=== PATIENT | male | born 1955 | race Caucasian/White ===

== ENCOUNTER 2024-04-13 10:55 | Outpatient (CLI) | payer MEDICARE, BC, SELFPAY | END 2024-04-13 10:56 | disposition home or self-care (01) | PROVIDERS: PCP Nurse Practitioner Family; Visit Provider Nurse Practitioner Family | DX: Z00.00 Encounter for general adult medical examination without abnormal findings (principal); E78.5 Hyperlipidemia, unspecified; I10 Essential (primary) hypertension; Z12.5 Encounter for screening for malignant neoplasm of prostate; Z13.0 Encounter for screening for diseases of the blood and blood-forming organs and certain disorders involving the immune mechanism | CPT/HCPCS: 80053; 80061; 85025; G0103 ==

== ENCOUNTER 2024-11-19 12:01 | Outpatient (CLI) | payer MEDICARE, BC, SELFPAY ==
--- OUTSIDE RECORDS SUMMARY | 2024-11-14 15:42 | XMS_ITS | Encounter Summary ---
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 [address] [place] [id number] Pulmonary Nodule Computed Tomography Indeterminate (Primary Dx); Lower Abdominal Pain Unspecified; Leukocytosis; Hypomagnesemia; Prolonged QT Interval; Chronic Obstructive Pulmonary Disease Exacerbation (HCC) Discharge Disposition: Home or Self Care Social History Tobacco Use Types Packs/Day Years Used Date Smoking Tobacco: Every Day Cigarettes Smokeless Tobacco: Current Chew Alcohol Use Standard Drinks/Week Comments Yes 0 (1 standard drink = 0.6 oz pur e alcohol) occassional Sex and Gender Information Value Date Recorded Sex Assigned at Not on file 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 Gender Identity Not on file Sexual Orientation Not on file documented as of this encounter Last Filed Vital Signs Vital Sign Reading Time Taken Comments Blood Pressure 133/78 11/14/2024 6:45 PM CDT Pulse 85 11/14/2024 6:45 PM CDT Temperature 36.7 C (98.1 F) 11/14/2024 3:45 PM CDT Respiratory Rate 20 11/14/2024 6:45 PM CDT Oxygen Saturation 94% 11/14/2024 6:45 PM CDT Inhaled Oxygen Concentration - - Weight 120 kg (264 lb 8.8 oz) 11/14/2024 3:53 PM CDT Height - - Body Mass Index 34.9 12/28/2018 12:05 PM CDT documented in this encounter Discharge Instructions * Discharge Instructions* Anum Larose P.A.-C. - 11/14/2024 5:53 PM CDT You were seen today for lower abdominal pain and shortness of breath. We did imaging on your chest,abdomen and pelvis and all were reassuring. You do have a pulmonary nodule on your lung; you will need to address this with your PCP for follow up. Your lab work came back showing that you have an infection. We were unable to identify a source, but you will be sent home with two prescriptions. Take as directed. There is a 5% chance that you could have an allergic reaction to the medications, but this is less likely given that you tolerated a similar medication we gave you while in the ED. Your heart was in an abnormal rhythm due to low magnesium levels. We repleted your magnesium, but you will still need to supplement magnesium with the prescription we are sending you. Take as directed and follow up with PCP for repeat testing in 3 days. It is crucial that you return to the ED immediately if your symptoms worsen, or if you experience fever, chills, vomiting, dehydration, chest pain, palpitations, severe abdominal pain or other concerning symptoms. documented in this encounter Medications at Time of Discharge albuterol (PROVENTIL HFA,VENTOLIN HFA) 90 mcg/actuation inhaler 10/07/2018 aspirin 325 mg tablet Take 325 mg by mouth. atorvastatin (LIPITOR) 40 mg tablet Take 40 mg by mouth daily. cefdinir (Omnicef) 300 mg capsuleIndication s:Leukocytosis Take 1 capsule (300 mg total) by mouth 2 (two) times a day before morning and evening meals. 10 capsule 11/14/2024 citalopram (CeleXA) 10 mg tablet Take 10 mg by mouth daily. hydroCHLOROthiazi de (HYDRODIURIL) 12.5 mg tablet Take 12.5 mg by mouth daily. lisinopril (PRINIVIL,ZESTRIL ) 20 mg tablet Take 20 mg by mouth daily. loratadine (CLARITIN) 10 mg tablet Take 10 mg by mouth. 05/13/2017 polyethylene glycol (MIRALAX) 17 gram/dose oral powder Mix and take as directed according to booklet Preparation Instructions for Your Colonoscopy. 238 g 12/18/2018 tiotropium (SPIRIVA WITH HANDIHALER) 18 mcg inhalation capsule Inhale contents of one capsule daily. ( Inhale 2 times per capsule to make sure you inhale all of the drug) 06/30/2018 doxycycline monohydrate (Avidoxy) 100 mg tabletIndications :Leukocytosis Take 1 tablet (100 mg total) by mouth 2 (two) times a day before morning and evening meals for 5 days. 10 tablet 11/14/2024 5 magnesium oxide (Mag-Ox) 400 mg (241.3 mg magnesium) tablet Take 1 tablet (400 mg total) by mouth 2 (two) times a day before morning and evening meals for 3 days. 6 tablet 11/14/2024 5 predniSONE (Deltasone) 50 mg tablet Take 1 tablet (50 mg total) by mouth daily for 5 days. 5 tablet 11/14/2024 5 documented as of this encounter Procedure Notes * Anum Larose P.A.-C. - 11/14/2024 6:49 PM CDTAssociated Order(s): Critical Care Procedure Critical Care Performed by: Anum Larose P.A.-C. Authorized by: Anum Larose P.A.-C. Critical care provider statement: Critical care total time (minutes): 30 Critical care time was exclusive of: separately billable procedures and treating other patients Critical care was necessary to treat or prevent imminent or life-threatening deterioration of the following conditions: cardiac arrhythmia respiratory failure sepsis metabolic crisis (IV magnesium required) Critical care was time spent personally by me on the following activities: blood draw for specimens, development of treatment plan with patient or surrogate, discussing treatment issues with family or surrogate, evaluation of patient's response to treatment, documenting in the patient chart, examination of patient, obtaining history from patient or surrogate, ordering andperforming treatments and interventions, ordering and review of laboratory studies, ordering and review of radiographic studies, pulse oximetry and re-evaluation of patient's condition I assumed direction of critical care for this patient from another provider in my specialty: no Anum Larose P.A.-C. 11/15/24 1127 documented in this encounter ED Notes * Belen Stroud APRN, C.N.P., D.N.P. - 11/14/2024 4:49 PM CDT I personally performed the substantive portion of this service which was medical decision-making. Pertinent MDM details included below. Refer to the MUCK FARMER/PA's note for additional details. Briefly, this is a 69-year-old male, who presents to the emergency department for evaluation shortness of breath. Comorbidities include COPD and hypertension. Patient reports that he developed an episode of dull, constant lower abdominal pain. Subsequently, he developed increased shortness for breath, rapid breathing, with a accompanying shakes. Pain does not radiate to back, chest, or lower extremities. He is not having any chest pain, diaphoresis, or palpitations. Upon his arrival to the emergency department, he was noted with increased work of breathing, otherwise vitally stable. He presents with generalized tremors. Patient is showing EKG shows sinus tachycardia, with prolonged QTC. Patient will be administered IVmagnesium. Initial lactate was also elevated at 4.3. He will be administered IV sepsis fluids. Remaining ED workup shows shows leukocytosis with left shift, no SANJAY, acute liver injury. Initial troponin is slightly elevated. Repeat EKG shows normal sinus rhythm, with markedly improved QTC after administration of magnesium.Lactate also improved after IV administration of fluids. Venous blood gas remained with no acidosis, or hypercapnia. ED workup shows no evidence of pulmonary emboli, pleural effusions, or consolidation, or pneumothoraces. CT scan of abdomen and pelvis showed evidence of acute appendicitis, diverticulitis, bowel obstruction, or other acute injury. Patient was informed of lab and imaging results. He did have significant improvement during the ED course. He maintain his oxygen saturation above 95% on room air. Respirations are within normal range. He has had major improvement in work of breathing. My recommendation is hospital admission. However, patient is requesting to be discharged home. We also discussed laboratory results with patient'ssignificant other, Elizabeth. Patient lives with his significant other. And they are both comfortable discharging him home, and watchful waiting. His 2 hour troponin was indeterminate. However, patient denies any chest pain, he does not this is cardiac in nature. Patient is his own medical decision maker, in his aware of the risks of leaving without a 6 hour troponin. A shared decision was made, between myself, patient, and significant other to discharge patient home with oral steroids, and antibiotics to treat for COPD exacerbation. We did discuss strict return precautions in detail. Patient, and significant other are in agreement with the discharge home, in agree to return to the emergency de partment if patient experiences any worsening chest pain, shortness for breath, or difficulty breathing. They agreed to return to the emergency department with any other acute concerns. Social determinants of health: None identified Final Diagnoses: as of 11/15/24 1154 Pulmonary Nodule Computed Tomography Indeterminate Lower Abdominal Pain Unspecified Leukocytosis Hypomagnesemia Prolonged QT Interval Chronic Obstructive Pulmonary Disease Exacerbation (HCC) Belen Stroud APRN, C.N.P., D.N.P. 11/15/24 1619 * Anum Larose P.A.-C. - 11/14/2024 4:10 PM CDT Images from the original note were not included. CHIEF COMPLAINT/REASON FOR VISIT Abdominal pain, shortness of breath HISTORY OF PRESENT ILLNESS This is a 69 year old male with a history of COPD presenting to the ED with lower abdominal pain and shortness of breath. Per patient, he developed constant, dull lower abdominal pain yesterday whichworsened this morning. He was also nauseous and had dry heaves 6 times. When he was getting his things ready to go to the hospital, he caused a COPD exacerbation which occur often. When he left the house the humidity hit him and caused his already significant symptoms to worsen. He did not get a chance to use his albuterol prior to coming. He denied fever but reported chills and malaise. Denied dizziness, chest pain, diarrhea and genitourinary symptoms. REVIEW OF SYSTEMS Allergies Reviewed in medical record Current Medications Reviewed in Medical Record. PAST HISTORY Medical Medical History[1] Problem List[2] Surgical Surgical History[3] Family Reviewed in Medical Record Social History Social History Tobacco Use Smoking status: Every Day Current packs/day: 0.50 Types: Cigarettes Smokeless tobacco: Current Types: Chew Substance Use Topics Alcohol use: Yes Comment: occassional Social History Substance and Sexual Activity Drug Use No OBJECTIVE Initial Vital Signs / Weights Initial Vitals Temperature 11/14/24 1545 36.7 ??C Pulse Rate 11/14/24 1545 108 Heart Rate 11/14/24 1637 (!) 118 Resp Rate 11/14/24 1602 (!) 32 Blood Pressure 11/14/24 1545 (!) 159/104 SpO2 11/14/24 1545 95 % Pain Score 11/14/24 1554 8 Wt Readings from Last 3 Encounters: 11/14/24 120 kg 12/24/22 115 kg 07/03/21 118 kg PHYSICAL EXAMINATION Constitutional: Nursing note and vitals reviewed. Cardiovascular: Tachycardic, abnormal rhythm; junctional per EKG Pulmonary/Chest: Tachypnea noted. He is in respiratory distress. Expiration is prolonged. Decreasedair movement is present. He has wheezes. Abdominal: Firm. Bowel sounds are normal. exhibits distension.There is abdominal tenderness (+ McBurney's sign, - Rosving's, - Perdue's sign). Neurological: Alert and oriented to person, place, and time. Skin: Skin is warm and dry. Psychiatric: He has a normal mood and affect. Behavior is normal. Judgment and thought content normal. DIAGNOSTICS Labs Labs Reviewed CBC WITH DIFFERENTIAL, B - Abnormal Result Value Hemoglobin 16.9 (*) Hematocrit 50.1 (*) Erythrocytes 5.30 MCV 94.5 RBC Distrib Width 12.5 Platelet Count 249 Leukocytes 16.0 (*) Neutrophils 15.13 (*) Lymphocytes 0.71 (*) Monocytes 0.15 (*) Eosinophils <0.04 Basophils <0.04 LACTATE FOR SEPSIS WITH REFLEX - Abnormal Lactate, P 4.3 (*) COMPREHENSIVE METABOLIC PANEL, S/P - Abnormal Potassium, P 3.5 (*) Sodium, P 132 (*) Chloride, P 96 (*) Bicarbonate, P 19 (*) Anion Gap, P 17 (*) BUN (Blood Urea Nitrogen), P 11 Creatinine 0.75 Estimated GFR (eGFR) >90 Calcium, Total, P 9.2 Glucose, P 136 Protein, Total, P 7.5 Albumin, P 4.2 Aspartate Aminotransferase (AST), P 28 Alkaline Phosphatase, P 80 Alanine Aminotransferase (ALT), P 28 Bilirubin, Total, P 0.9 MAGNESIUM, S - Abnormal Magnesium, P 1.4 (*) URINALYSIS WITH MICROSCOPIC IF INDICATED, U - Abnormal Source Urine, Urine, Midstream Clarity Clear Color Yellow Blood Small (*) Nitrite Negative Leukocyte Esterase Negative Protein 30 (*) Glucose Negative Ketones, QI(U) Negative Bilirubin Negative pH 5.0 Specific Davy 1.010 Urobilinogen 0.2 MICROSCOPIC MANUAL - Abnormal White Blood Cells 4-10 (*) Red Blood Cells 41-50 (*) Dysmorphic Red Blood Cells <=25 Bacteria None Seen SARS CORONAVIRUS 2, PCR RAPID, V SARS CoV-2, PCR, Rapid, V Undetected SARS Coronavirus 2, Source, Rapid Swab, Nasopharynx BACTERIA / MARY CULTURE, BLOOD Narrative: Specimen Information: Specimen ID: [id number] Specimen Source: Blood, Peripheral Draw Specimen Comment: Specimen Source Site: Blood Specimen Collection Start Date: 11/14/2024 4:56 PM Specimen Received Date: 11/14/2024 5:06 PM Specimen ID: [id number] Specimen Source: Blood, Peripheral Draw Specimen Comment: Specimen Source Site: Blood Specimen Collection Start Date: 11/14/2024 4:56 PM Specimen Received Date: 11/14/2024 5:06 PM Specimen ID: [id number] Specimen Source: Blood, Peripheral Draw Specimen Comment: Specimen Source Site: Blood Specimen Collection Start Date: 11/14/2024 4:56 PM Specimen Received Date: 11/14/2024 5:06 PM BACTERIA / MARY CULTURE, BLOOD Narrative: Specimen Information: Specimen ID: [id number] Specimen Source: Blood, Peripheral Draw Specimen Comment: Specimen Source Site: Blood Specimen Collection Start Date: 11/14/2024 4:44 PM Specimen Received Date: 11/14/2024 4:48 PM Specimen ID: [id number] Specimen Source: Blood, Peripheral Draw Specimen Comment: Specimen Source Site: Blood Specimen Collection Start Date: 11/14/2024 4:44 PM Specimen Received Date: 11/14/2024 4:48 PM Specimen ID: [id number] Specimen Source: Blood, Peripheral Draw Specimen Comment: Specimen Source Site: Blood Specimen Collection Start Date: 11/14/2024 4:44 PM Specimen Received Date: 11/14/2024 4:48 PM TROPONIN T, BASELINE, 5TH GEN, P Troponin T, Baseline, 5th gen 10 NT-PRO B-TYPE NATRIURETIC PEPTIDE (BNP), S NT-Pro BNP 225 LIPASE, S/P Lipase, P 15 TROPONIN T, 2H/6H REFLEX, 5TH GEN, P LACTATE, B/P BLOOD GAS, VENOUS, POCT, B pH, Venous, POCT, B 7.34 pCO2, Venous, POCT, B 48 pO2, Venous, POCT, B 25 HCO3, Venous, POCT, B 26 Base Excess, Venous, POCT, B 0 O2 Saturation, Venous, POCT, B 41 Sample Type, Blood Gas, POCT RITO INFLUENZA A, B, RSV, PCR, POCT Influenza A, POCT Negative Influenza B, POCT Negative Resp Syncytial Virus, POCT Negative ECG ECG 12 Lead Result Date: 11/14/2024 Sinus tachycardia with P-T fusion with 1st degree A-V block Left anterior fascicular block Prolonged QT No previous ECGs available Reviewed by YASEMIN May Radiology CT Abdomen Pelvis with IV Contrast Final Result Limited evaluation secondary to motion artifacts despite repeating imaging. 1. No acute intra-abdominal pathology to explain patient's symptoms. 2. Incidental 1.2 cm pancreatic tail mass. Consider further evaluation with pancreatic protocol MRIor endoscopic ultrasound for better characterization and biopsy as indicated. 3. Nodular prostatomegaly. Recommend correlation with serum PSA level. CT Chest Angiogram and Pulmonary Arteries with IV Contrast Final Result Significant limitations to the examination secondary to motion artifact. 1. There are no pulmonary emboli in the lobar pulmonary arteries. The study is inconclusive for thepresence or absence of pulmonary embolism at the segmental and subsegmental levels. 2. No evidence of right heart function. 3. Left lower lobe solid nodule measuring up to 11 mm. See below for follow-up recommendations. 4. Emphysema. 5. Dilated main pulmonary artery, can be seen secondary to pulmonary vascular hypertension. GUIDELINES FOR FOLLOW-UP of newly detected solid nodules incidentally detected on CT in persons 35 years or older. (2017 revision) LOW-RISK PATIENT (Minimal or absent history or smoking or of other known risk factors) For single nodule, size: <6mm- No routine follow-up required 6-8mm- CT at 6-12 months; then consider CT at 18-24 months, if no change >8mm- Consider Pulmonary Medicine consultation for management, or follow-up with CT at 3 months For multiple nodules, size of largest nodule: <6mm- No routine follow-up required 6mm or>- CT at 3-6 months, then consider CT at 18-24 months HIGH-RISK PATIENT (History of smoking or of other known risk factors) For single nodule, size: <6mm- Optional CT at 12 months*; If unchanged, no further follow-up required 6-8mm- CT at 6-12 months; then CT at 18-24 months, if no change >8mm- Consider Pulmonary Medicine consultation for management, or follow-up with CT at 3 months For multiple nodules, size of largest nodule: <6mm- Optional CT at 12 months*; If unchanged, no further follow-up required 6mm or>- CT at 3-6 months, then consider CT at 18-24 months (Nodule size is the average of length and width.) *Nodules <6mm do not require routine follow-up, but certain patients at high risk with suspicious nodule morphology, upper lobe location, or both may warrant 12-month follow-up. ED COURSE Final Diagnoses: as of 11/14/24 1825 Pulmonary Nodule Computed Tomography Indeterminate Lower Abdominal Pain Unspecified Leukocytosis Hypomagnesemia Prolonged QT Interval Chronic Obstructive Pulmonary Disease Exacerbation (HCC) INTERVENTIONS Medications magnesium sulfate in water IVPB 2 g (2 g intravenous New Bag 11/14/24 164) NaCl 0.9 % bolus 1,000 mL (has no administration in time range) NaCl 0.9 % bolus 1,000 mL (1,000 mL intravenous New Bag 11/14/24 174) ipratropium-albuteroL 0.5-2.5 mg/3 mL nebulizer solution 3 mL (DuoNeb) (3 mL nebulization Given 11/14/24 1558) iohexoL 350 mg iodine/mL solution 140 mL (Omnipaque) (140 mL intravenous Given 11/14/24 1616) sodium chloride 0.9 % flush 80 mL (80 mL intravenous Given 11/14/24 1617) sodium chloride 0.9 % injection 10 mL (10 mL intravenous Given 11/14/24 161) LORazepam injection 0.5 mg (Ativan) (0.5 mg intravenous Given 11/14/24 162) cefTRIAXone injection 2 g (Rocephin) (2 g intravenous Given 11/14/24 1654) NaCl 0.9 % bolus 1,000 mL (0 mL intravenous Stopped 11/14/24 174) dexAMETHasone injection 10 mg (Decadron) (10 mg intravenous Given 11/14/24 164) MEDICAL DECISION MAKING Assessment and Plan This is a 69 year old male with a past medical history significant for hypertension and COPD presenting to the ED from home with new onset abdominal pain and shortness of breath. Patient was dyspneic and distressed on arrival and received a duo-neb immediately. He was sent for imaging (CT Angiogram, CT abdomen/pelvis) to rule out pulmonary embolism, aortic aneurysm/dissection, appendicitis, pancreatitis, cholecystitis, abscess, etc. CBC with differential showed leukocytosisand lactate was positive. Ceftriaxone was administered empirically, and he was prescribed cefdinir and azithromycin for outpatient treatment. EKG showed tachycardia with junctional rhythm with prolonged QT. Magnesium was 1.7. Magnesium was repleted and EKG returned to sinus rhythm. QT improved but was still prolonged to 522. Consulted pharmacists, they recommended he take magnesium oxide Would recommend magnesium oxide 400 mg BID for 3 days, then follow up with PCP to see where his level is at. Lactate downtrended from 4 to 2.7 on second draw. I suggested that the patient stay overnight but he was adamant in going home. Given his symptom improvement (pain subsided without pain medication), improved EKG, improved vital signs, return to normal work of breathing and his partner agreeing to monitor his well being, I felt comfortable agreeingto discharge him home with the aforementioned medications and a plan to follow up with his PCP. I did emphasize that the patient should return to the ED immediately if his symptoms worsened, or if hedeveloped a fever, severe abdominal pain, shortness of breath or chest pain. Patient and partner expressed understanding and were agreeable to the plan. . DIFFERENTIAL DIAGNOSES 1. COPD exacerbation- most likely given history, physical presentation 2. Pulmonary embolism- possible given profound dyspnea, less likely given systemic symptoms of chills, nausea and vomiting 3. Aortic aneurysm/dissection- unlikely based on presentation 4. Cholecystitis- possible, but less likely based on location of pain (lower abdomen), negative Perdue's sign 5. Cystitis- possible given location of pain, but less likely given lack of urinary symptoms . Escalation of care, including admission/observation, considered: Given EKG, lactate and original presentation admission was strongly considered. However, patient wanted to go home and I ultimately felt comfortable discharging him due to his symptom improvement and the plan we created together. . I discussed the management of the patient with: Pharmacist. DIAGNOSIS Final diagnoses: [R91.1] Pulmonary Nodule Computed Tomography Indeterminate [R10.30] Lower Abdominal Pain Unspecified [D72.829] Leukocytosis DISPOSITION Home or Self Care DISCHARGE/TRANSFER VITAL SIGNS Vitals: 11/14/24 1741 BP: 132/69 Pulse: 97 Resp: 16 Temp: SpO2: 92% ED DISCHARGE MEDS ED Prescriptions Medication Sig Dispense Start Date End Date Auth. Provider cefdinir (Omnicef) 300 mg capsule Take 1 capsule (300 mg total) by mouth 2 (two) times a day beforemorning and evening meals. 10 capsule 11/14/2024 -- Anum Larose, P.A.-C. azithromycin (Zithromax) 250 mg tablet Take 2 tablets (500 mg total) by mouth daily for 1 day, THEN1 tablet (250 mg total) daily for 4 days. 6 tablet 11/14/2024 11/19/2024 Anum Larose, P.A.-C. FOLLOW UP Anum Larose PA-C, MPH Emergency Medicine Anum Larose P.A.-C. 11/14/242104 [1] Past Medical History: Diagnosis Date Hypertension NOS [2] Patient Active Problem List Diagnosis Screening Colon Cancer Average Risk Abuse Tobacco Smoking Obesity Body Mass Index 30-39.9 Adult Hypertension Essential Primary [3] Past Surgical History: Procedure Laterality Date COLONOSCOPY N/A 12/28/2018 Procedure: COLONOSCOPY; Surgeon: Isaiah Don M.D.; Location: [facility] COLONOSCOPY N/A 12/24/2022 Procedure: COLONOSCOPY-a; Surgeon: Isaiah Don M.D.; Location: [facility] Anum Larose P.A.-C. 11/14/242106 documented in this encounter Plan of Treatment Pending Results Name Type Priority Associated Diagnoses Date /Time Bacteria / Mary Culture, Blood #1 Microbiology STAT 11/14/2024 4:5 6 PM CDT Bacteria / Mary Culture, Blood #2 Microbiology STAT 11/14/2024 4:4 4 PM CDT documented as of this encounter Procedures Procedure Name Priority Date/Time Associated Diagnosis Comments CRITICAL CARE Routine 11/14/2024 6:49 PM CDT TROPONIN T, 2H/6H REFLEX, 5TH GEN, P STAT 11/14/2024 6:19 PM CDT LACTATE, B/P STAT 11/14/2024 6:19 PM CDT ECG Routine 11/14/2024 6:00 PM CDT SARS CORONAVIRUS 2, PCR RAPID, V STAT 11/14/2024 5:27 PM CDT INFLUENZA A, B, RSV, PCR, POCT STAT 11/14/2024 5:27 PM CDT URINALYSIS WITH MICROSCOPIC IF INDICATED, U STAT 11/14/2024 5:10 PM CDT HC URINALYSIS AUTO W MICRO STAT 11/14/2024 5:10 PM CDT BACTERIA / MARY CULTURE, BLOOD STAT 11/14/2024 4:56 PM CDT MAGNESIUM, S STAT 11/14/2024 4:56 PM CDT LACTATE FOR SEPSIS WITH REFLEX STAT 11/14/2024 4:44 PM CDT BACTERIA / MARY CULTURE, BLOOD STAT 11/14/2024 4:44 PM CDT LIPASE, S/P STAT 11/14/2024 4:44 PM CDT COMPREHENSIVE METABOLIC PANEL, S/P STAT 11/14/2024 4:44 PM CDT ECG STAT 11/14/2024 4:[address] ABDOMEN PELVIS WITH IV CONTRAST RAD - Semiurgent (Fast; most ED patients; some inpatients) 11/14/2024 4:[address] CHEST ANGIOGRAM AND PULMONARY ARTERIES WITH IV CONTRAST RAD - Semiurgent (Fast; most ED patients; some inpatients) 11/14/2024 4:23 PM CDT TROPONIN T, BASELINE, 5TH GEN, P STAT 11/14/2024 4:12 PM CDT NT-PRO B-TYPE NATRIURETIC PEPTIDE (BNP), S STAT 11/14/2024 4:12 PM CDT VBG (VENOUS BLOOD GAS), POCT, B STAT 11/14/2024 4:08 PM CDT CBC WITH DIFFERENTIAL, B STAT 11/14/2024 4:08 PM CDT documented in this encounter Results * Critical Care (11/14/2024 6:49 PM CDT) Narrative Anum Larose P.A.-C. - 11/14/2024 6:49 PM CDT Anum Larose P.A.-C. 11/15/2024 11:27 AM Critical Care Performed by: Anum Larose P.A.-C. Authorized by: Anum Larose P.A.-C. Critical care provider statement: Critical care total time (minutes): 30 Critical care time was exclusive of: separately billable procedures and treating other patients Critical care was necessary to treat or prevent imminent or life-threatening deterioration of the following conditions: cardiac arrhythmia respiratory failure sepsis metabolic crisis (IV magnesium required) Critical care was time spent personally by me on the following activities: blood draw for specimens, development of treatment plan with patient or surrogate, discussing treatment issues with family or surrogate, evaluation of patient's response to treatment, documenting in the patient chart, examination of patient, obtaining history from patient or surrogate, ordering and performing treatments and interventions, ordering and review of laboratory studies, ordering and review of radiographic studies, pulse oximetry and re-evaluation of patient's condition I assumed direction of critical care for this patient from another provider in my specialty: no Anum Larose P.A.-C. PROCEDURE/MINOR SURGICAL ORDERABLES Final Result * (ABNORMAL) Lactate (11/14/2024 6:19 PM CDT) Lactate, P 2.5(H) 0.5 - 2.2 mmol/L 11/14/2024 6:38 PM CDT [facility] Blood (Blood, Venous) 11/14/2024 6:19 PM CDT 11/14/2024 6:22 PM CDT Anum Larose P.A.-C. LAB BLOOD NON ADD-ON Telma l Result [facility] [address] [place] [phone], [facility] [place] [address] * (ABNORMAL) Troponin T, 2 Hour with 6 Hour Reflex, 5th Gen (11/14/2024 6:19 PM CDT) Troponin T, 2 hr, 5th gen 19(H) <=15 ng/L 11/14/2024 6:42 PM CDT CNFL 2H Delta 9 ng/L 11/14/2024 6:42 PM CDT CNFL Comment:6 hour collection pe nding. 2H Delta Interp Indeterminate 11/14/2024 6:42 PM CDT CNFL Comment:Indeterminate delta, additional sample suggested Blood 11/14/2024 6:19 PM CDT 11/14/2024 6:22 PM CDT us Anum Larose P.A.-C. LAB BLOOD TROPONIN Final Result [facility] [address] [place] [phone], [facility] in [address] [address] * ECG 12 Lead (11/14/2024 6:00 PM CDT) Ventricular Rate ECG/Min 87 BPM MUSE IN Interval 228 ms MUSE QRSD Interval 96 ms MUSE QT Interval 434 ms MUSE QTC Interval 522 ms MUSE P [place] 71 degrees MUSE R [place] -53 degrees MUSE T Wave [place] 68 degrees MUSE 11/14/2024 6:00 PM CDT 11/14/2024 6:12 PM CDT Impressions MUSE - 11/14/2024 6:11 PM CDT Sinus rhythm with 1st degree A-V block Left anterior fascicular block Nonspecific T wave abnormality Prolonged QT When compared with ECG of 14-Nov-2024 16:28, T waves have changed IN interval has increased QT has lengthened Revised Report Narrative Procedure Note Jean Claude Madsen M.D., Ph.D. - 11/14/2024 IMPRESSION: Sinus rhythm with 1st degree A-V block Left anterior fascicular block Nonspecific T wave abnormality Prolonged QT When compared with ECG of 14-Nov-2024 16:28, T waves have changed IN interval has increased QT has lengthened Revised Report Result [facility] Belen Stroud APRN, C.N.P., D.N.P. ECG ORDERA BLES Edited Result - Final MUSE NA * Influenza A/B and RSV, PCR, Point of Care (11/14/2024 5:27 PM CDT) Influenza A, POCT Negative Negative 11/14/2024 5:30 PM CDT CNFL Influenza B, POCT Negative Negative 11/14/2024 5:30 PM CDT CNFL Resp Syncytial Virus, POCT Negative Negative 11/14/2024 5:30 PM CDT CNFL Swab (Nasopharynx) 11/14/2024 5:27 PM CDT 11/14/2024 5:27 PM CDT Result [facility] Belen Stroud APRN, C.N.P., D.N.P. LAB POCT O RDERABLES - DEVICE Final Result Performing Organization Address City/[facility]/ZIP Co de Phone Number [facility] [address] [place] [phone], [facility] in [address] [address] * SARS Coronavirus 2, PCR Rapid Symptomatic (11/14/2024 5:27 PM CDT) SARS CoV-2, PCR, Rapid, V Undetected Undetected 11/14/2024 5:26 PM CDT CNFL SARS Coronavirus 2, Source, Rapid Swab, Nasopharynx 11/14/2024 5:27 PM CDT CNFL Swab (Nasopharynx) 11/14/2024 5:27 PM CDT 11/14/2024 5:27 PM CDT Kasi Crooks APRNNBertha ., D.N.P. LAB MICROBIOLOGY - GENERAL ORDERABLES Final Result [facility] [address] [place] [phone], [facility] [address] [address] * (ABNORMAL) Microscopic Manual (11/14/2024 5:10 PM CDT) White Blood Cells 4-10(A) /hpf 11/14/2024 5:33 PM CDT CNFL Comment: ----REFERENCE VALUE---- Males: 0-3 Females: 0-10 Unknown: 0-10 Red Blood Cells 41-50(A) 0 - 2 /hpf 5:33 PM CDT CNFL Dysmorphic Red Blood Cells <=25 <=25 % 11/14/2024 5:33 PM CDT CNFL Bacteria None Seen None Seen 11/14/2024 5:33 PM CDT CNFL Urine 11/14/2024 5:10 PM CDT 11/14/2024 5:15 PM CDT Kasi Crooks APRNN.P., D.N.P. LAB URINE ORDERABLES Final Result Performing Organization Address [facility] Co de Phone Number [address] [address], [facility] [address] [address] * (ABNORMAL) Urinalysis with Microscopic if Indicated: Urine, Midstream (11/14/2024 5:10 PM CDT) Source Urine, Urine, Midstream 11/14/2024 5:15 PM CDT CNFL Clarity Clear Clear 11/14/2024 5:18 PM CDT CNFL Color Yellow 11/14/2024 5:18 PM CDT CNFL Comment: ----REFERENCE VALUE---- Colorless Yellow Jessica Blood Small(A) Negative 11/14/2024 5:18 PM CDT CNFL Nitrite Negative Negative 11/14/2024 5:18 PM CDT CNFL Leukocyte Esterase Negative Negative 11/14/2024 5:18 PM CDT CNFL Protein 30(A) mg/dL 11/14/2024 5:18 PM CDT CNFL Comment: ----REFERENCE VALUE---- Negative Trace Glucose Negative Negative mg/dL 11/14/2024 5:18 PM CDT CNFL Ketones, QI(U) Negative Negative mg/dL 11/14/2024 5:18 PM CDT CNFL Bilirubin Negative Negative 11/14/2024 5:18 PM CDT CNFL pH 5.0 5.0 - 8.0 11/14/2024 5:18 PM CDT CNFL Specific Davy 1.010 1.001 - 1.035 11/14/2024 5:18 PM CDT CNFL Urobilinogen 0.2 0.2 - 1.0 mg/dL 11/14/2024 5:18 PM CDT CNFL Urine (Urine, Midstream) 11/14/2024 5:10 PM CDT 11/14/2024 5:15 PM CDT us Belen Stroud APRN C.N.P., D.N.P. LAB URINE ORDERABLES Final Result [facility] [address] [place] [address], [facility] [place] [address] * (ABNORMAL) Magnesium (11/14/2024 4:56 PM CDT) Magnesium, P 1.4(L) 1.7 - 2.3 mg/dL 11/14/2024 5:39 PM CDT CNFL Blood (Blood, Venous) 11/14/2024 4:56 PM CDT 11/14/2024 5:05 PM CDT us Anum Larose P.A.-C. LAB BLOOD ADD-ON Final Re sult [facility] [address] [place] [phone], [facility] CNFL [facility] in [address] [address] * (ABNORMAL) Comprehensive Metabolic Panel (11/14/2024 4:44 PM CDT) Potassium, P 3.5(L) 3.6 - 5.2 mmol/L 11/14/2024 5:05 PM CDT CNFL Sodium, P 132(L) 135 - 145 mmol/L 11/14/2024 5:05 PM CDT CNFL Chloride, P 96(L) 98 - 107 mmol/L 11/14/2024 5:05 PM CDT CNFL Bicarbonate, P 19(L) 22 - 29 mmol/L 11/14/2024 5:05 PM CDT CNFL Anion Gap, P 17(H) 7 - 15 11/14/2024 5:05 PM CDT CNFL BUN (Blood Urea Nitrogen), P 11 8 - 24 mg/dL 11/14/2024 5:05 PM CDT CNFL Creatinine 0.75 0.74 - 1.35 mg/dL 11/14/2024 5:05 PM CDT CNFL Estimated GFR (eGFR) >90 >=60 mL/min/BS A 11/14/2024 5:05 PM CDT CNFL Comment: Estimated GFR calculated using the 2020 CKD_EPI creatinine equation. Calcium, Total, P 9.2 8.8 - 10.2 mg/dL 11/14/2024 5:05 PM CDT CNFL Glucose, P 136 70 - 140 mg/dL 11/14/2024 5:05 PM CDT CNFL Protein, Total, P 7.5 6.3 - 7.9 g/dL 11/14/2024 5:05 PM CDT CNFL Albumin, P 4.2 3.5 - 5.0 g/dL 11/14/2024 5:05 PM CDT CNFL Aspartate Aminotransferase (AST), P 28 8 - 48 U/L 11/14/2024 5:05 PM CDT CNFL Alkaline Phosphatase, P 80 40 - 129 U/L 11/14/2024 5:05 PM CDT CNFL Alanine Aminotransferase (ALT), P 28 7 - 55 U/L 11/14/2024 5:05 PM CDT CNFL Bilirubin, Total, P 0.9 0.0 - 1.2 mg/dL 11/14/2024 5:05 PM CDT CNFL Blood 11/14/2024 4:44 PM CDT 11/14/2024 4:46 PM CDT Belen Stroud APRN, C.N.P., D.N.P. LAB BLOOD ADD-ON Final Result [facility] [address] [place] [address], [place] [address] * Lipase (11/14/2024 4:44 PM CDT) Lipase, P 15 13 - 60 U/L 11/14/2024 5: 05 PM CDT CNFL Blood 11/14/2024 4:44 PM CDT 11/14/2024 4:46 PM CDT Belen Stroud APRN, C.N.P., D.N.P. LAB BLOOD ADD-ON Final Result [facility] [address] [place] [address], [facility] [address] [address] * (ABNORMAL) Lactate for Sepsis with Reflex (11/14/2024 4:44 PM CDT) Lactate, P 4.3(H) 0.5 - 2.2 mmol/L 11/14/2024 5:03 PM CDT CNFL Blood (Blood, Venous) 11/14/2024 4:44 PM CDT 11/14/2024 4:46 PM CDT us Anum Larose P.A.-C. LAB BLOOD NON ADD-ON Telma l Result Performing Organization Address City/[facility]/ZIP Co de Phone Number [facility] [address] [place] [phone], [facility] CNFL [facility] in [address] [address] * ECG 12 Lead (11/14/2024 4:28 PM CDT) Ventricular Rate ECG/Min 118 BPM MUSE IN Interval 224 ms MUSE QRSD Interval 102 ms MUSE QT Interval 444 ms MUSE QTC Interval 622 ms MUSE R [place] -73 degrees MUSE T Wave [place] 86 degrees MUSE 11/14/2024 4:28 PM CDT 11/14/2024 4:58 PM CDT Impressions MUSE - 11/14/2024 4:58 PM CDT Sinus tachycardia with P-T fusion with 1st degree A-V block Left anterior fascicular block Prolonged QT No previous ECGs available Reviewed by YASEMIN May Narrative Procedure Note Jean Claude Madsen M.D., Ph.D. - 11/14/2024 IMPRESSION: Sinus tachycardia with P-T fusion with 1st degree A-V block Left anterior fascicular block Prolonged QT No previous ECGs available Reviewed by YASEMIN May us Anum Larose P.A.-C. ECG ORDERABLES Final Res ult MUSE NA * CT Abdomen Pelvis with IV Contrast (11/14/2024 4:25 PM CDT) Anatomical Region Laterality Modality Abdomen, Pelvis, Abdominal R ST LOS, Abdominal ARZ LOS, Abdominal FLA LOS N/A Computed Tomography 11/14/2024 4:27 PM CDT Impressions 11/14/2024 5:04 PM CDT Limited evaluation secondary to motion artifacts despite repeating imaging. 1. No acute intra-abdominal pathology to explain patient's symptoms. 2. Incidental 1.2 cm pancreatic tail mass. Consider further evaluation with pancreatic protocol MRI or endoscopic ultrasound for better characterization and biopsy as indicated. 3. Nodular prostatomegaly. Recommend correlation with serum PSA level. Narrative 11/14/2024 5:04 PM CDT EXAM: CT ABDOMEN PELVIS WITH IV CONTRAST COMPARISON: None FINDINGS: Evaluation limited by motion artifact despite repeat imaging as patient was unable to maintain breath hold during image acquisition. Small sliding hiatal hernia. Right hepatic cyst. Hepatic steatosis. 1.2 cm pancreatic tail mass (series 3, image 27). Gallbladder, spleen, and right adrenal gland are grossly unremarkable. Left adrenal nodular hyperplasia. No hydronephrosis. Mildly distended urinary bladder. Enlarged heterogeneous nodular prostate gland with intravesicular extension. Pelvic phlebolith. Normal caliber small and large bowel. Colonic diverticulosis. No free air or fluid. Aortobiiliac atherosclerotic calcifications. Small fat-containing inguinal hernias. Degenerative changes in the spine, sacroiliac joints and hips. Procedure Note Brittany Sawant M.D. - 11/14/2024 EXAM: CT ABDOMEN PELVIS WITH IV CONTRAST COMPARISON: None FINDINGS: Evaluation limited by motion artifact despite repeat imaging aspatient was unable to maintain breath hold during image acquisition. Small sliding hiatal hernia. Right hepatic cyst. Hepatic steatosis. 1.2 cmpancreatic tail mass (series 3, image 27). Gallbladder, spleen, and rightadrenal gland are grossly unremarkable. Left adrenal nodular hyperplasia.No hydronephrosis. Mildly distended urinary bladder. Enlarged heterogeneous nodular prostate glandwith intravesicular extension. Pelvic phlebolith. Normal caliber small andlarge bowel. Colonic diverticulosis. No free air or fluid. Aortobiiliacatherosclerotic calcifications. Small fat-containing inguinal hernias. Degenerative changes in the spine,sacroiliac joints and hips. IMPRESSION: Limited evaluation secondary to motion artifacts despite repeatingimaging. 1. No acute intra-abdominal pathology to explain patient's symptoms. 2. Incidental 1.2 cm pancreatic tail mass. Consider further evaluationwith pancreatic protocol MRI or endoscopic ultrasound for bettercharacterization and biopsy as indicated. 3. Nodular prostatomegaly. Recommend correlation with serum PSA level. us Anum Larose P.A.-C. IMG CT PROCEDURES Final R esult * CT Chest Angiogram and Pulmonary Arteries with IV Contrast (11/14/2024 4:23 PM CDT) Anatomical Region Laterality Modality Chest, Cardiovascular RST LO S, Thoracic ARZ LOS, Thoracic FLA LOS N/A Computed Tomography 11/14/2024 4:21 PM CDT Impressions 11/14/2024 4:36 PM CDT Significant limitations to the examination secondary to motion artifact. 1. There are no pulmonary emboli in the lobar pulmonary arteries. The study is inconclusive for the presence or absence of pulmonary embolism at the segmental and subsegmental levels. 2. No evidence of right heart function. 3. Left lower lobe solid nodule measuring up to 11 mm. See below for follow-up recommendations. 4. Emphysema. 5. Dilated main pulmonary artery, can be seen secondary to pulmonary vascular hypertension. GUIDELINES FOR FOLLOW-UP of newly detected solid nodules incidentally detected on CT in persons 35 years or older. (2017 revision) LOW-RISK PATIENT (Minimal or absent history or smoking or of other known risk factors) For single nodule, size: <6mm- No routine follow-up required 6-8mm- CT at 6-12 months; then consider CT at 18-24 months, if no change >8mm- Consider Pulmonary Medicine consultation for management, or follow-up with CT at 3 months For multiple nodules, size of largest nodule: <6mm- No routine follow-up required 6mm or>- CT at 3-6 months, then consider CT at 18-24 months HIGH-RISK PATIENT (History of smoking or of other known risk factors) For single nodule, size: <6mm- Optional CT at 12 months*; If unchanged, no further follow-up required 6-8mm- CT at 6-12 months; then CT at 18-24 months, if no change >8mm- Consider Pulmonary Medicine consultation for management, or follow-up with CT at 3 months For multiple nodules, size of largest nodule: <6mm- Optional CT at 12 months*; If unchanged, no further follow-up required 6mm or>- CT at 3-6 months, then consider CT at 18-24 months (Nodule size is the average of length and width.) *Nodules <6mm do not require routine follow-up, but certain patients at high risk with suspicious nodule morphology, upper lobe location, or both may warrant 12- month follow-up. Narrative 11/14/2024 4:36 PM CDT EXAM: CT CHEST ANGIOGRAM AND PULMONARY ARTERIES WITH IV CONTRAST Including 3D image postprocessing with or without AI assistance. COMPARISON: Chest x-ray to 04/11/2022. FINDINGS: Pulmonary Arteries: Suboptimal evaluation of the pulmonary arteries due to motion artifact, which can only be evaluated to the lobar levels. Pulmonary embolism: No endoluminal filling defects in the opacified pulmonary arteries only to the lobar levels. Beyond this level the presence or absence of pulmonary emboli cannot be assessed. Signs of right ventricular dysfunction are absent. Other cardiovascular: Moderate coronary calcifications. Dilated main pulmonary artery measuring up to 3.2 cm, can be seen with pulmonary vascular hypertension. Lungs and Airways: Moderate apical predominant emphysema. 11 x 10 mm solid pulmonary nodule within the left lower lobe (series 8, image 173). Linear atelectasis within the right and left lung base within the right and left lower lobes and the base of the left upper lobe. Pleural Space: No pleural fluid or thickening. Mediastinum and Alina: No thoracic adenopathy. Osseous Structures and Chest Wall: No aggressive bone lesions. Thoracic spondylosis. Medical Devices: None. Upper Abdomen: Hepatic steatosis. Procedure Note Patty Gongora D.O. - 11/14/2024 EXAM: CT CHEST ANGIOGRAM AND PULMONARY ARTERIES WITH IV CONTRAST Including 3D image postprocessing with or without AI assistance. COMPARISON: Chest x-ray to 04/11/2022. FINDINGS: Pulmonary Arteries: Suboptimal evaluation of the pulmonary arteries due tomotion artifact, which can only be evaluated to the lobar levels. Pulmonary embolism: No endoluminal filling defects in the opacifiedpulmonary arteries only to the lobar levels. Beyond this level thepresence or absence of pulmonary emboli cannot be assessed. Signs of right ventricular dysfunction are absent. Other cardiovascular: Moderate coronary calcifications. Dilated mainpulmonary artery measuring up to 3.2 cm, can be seen with pulmonaryvascular hypertension. Lungs and Airways: Moderate apical predominant emphysema. 11 x 10 mm solidpulmonary nodule within the left lower lobe (series 8, image 173). Linearatelectasis within the right and left lung base within the right and leftlower lobes and the base of the left upper lobe. Pleural Space: No pleural fluid or thickening. Mediastinum and Alina: No thoracic adenopathy. Osseous Structures and Chest Wall: No aggressive bone lesions. Thoracicspondylosis. Medical Devices: None. Upper Abdomen: Hepatic steatosis. IMPRESSION: Significant limitations to the examination secondary to motion artifact. 1. There are no pulmonary emboli in the lobar pulmonary arteries. Thestudy is inconclusive for the presence or absence of pulmonary embolism atthe segmental and subsegmental levels. 2. No evidence of right heart function. 3. Left lower lobe solid nodule measuring up to 11 mm. See below forfollow-up recommendations. 4. Emphysema. 5. Dilated main pulmonary artery, can be seen secondary to pulmonaryvascular hypertension. GUIDELINES FOR FOLLOW-UP of newly detected solid nodules incidentallydetected on CT in persons 35 years or older. (2017 revision) LOW-RISK PATIENT (Minimal or absent history or smoking or of other knownrisk factors) For single nodule, size: <6mm- No routine follow-up required 6-8mm- CT at 6-12 months; then consider CT at 18-24 months, if no change >8mm- Consider Pulmonary Medicine consultation for management, orfollow-up with CT at 3 months For multiple nodules, size of largest nodule: <6mm- No routine follow-up required 6mm or>- CT at 3-6 months, then consider CT at 18-24 months HIGH-RISK PATIENT (History of smoking or of other known risk factors) For single nodule, size: <6mm- Optional CT at 12 months*; If unchanged, no further follow-uprequired 6-8mm- CT at 6-12 months; then CT at 18-24 months, if no change >8mm- Consider Pulmonary Medicine consultation for management, orfollow-up with CT at 3 months For multiple nodules, size of largest nodule: <6mm- Optional CT at 12 months*; If unchanged, no further follow-uprequired 6mm or>- CT at 3-6 months, then consider CT at 18-24 months (Nodule size is the average of length and width.) *Nodules <6mm do not require routine follow-up, but certain patients athigh risk with suspicious nodule morphology, upper lobe location, or bothmay warrant 12-month follow-up. us Anum Larose P.A.-C. IMG CT PROCEDURES Final R esult * NT-Pro B-Type Natriuretic Peptide (BNP) (11/14/2024 4:12 PM CDT) NT-Pro BNP 225 <=540 pg/mL 11/14/2024 4:44 PM CDT CNFL Comment: NT-proBNP values less than 300 pg/mL have a 99% negative predictive value for excluding acute congestive heart failure. A cutoff of 1200 pg/mL for patients with an eGFR<60 yields a diagnostic sensitivity and specificity of 89% and 72% for acute congestive heart failure. A diagnostic NT-proBNP cutoff of 900 pg/mL has been suggested in adults 50-75 years of age in the absence of renal failure. Blood (Blood, Venous) 11/14/2024 4:12 PM CDT 11/14/2024 4:12 PM CDT Anum Larose P.A.-C. LAB BLOOD ADD-ON Final Re sult [facility] [address] [place] [address], [facility] in [address] [address] * Troponin T, Baseline with 2 Hour/6 Hour Reflex Biomarker Panel (11/14/2024 4:12 PM CDT) Troponin T, Baseline, 5th gen 10 <=15 ng/L 11/14/2024 4:31 PM CDT [facility] Blood (Blood, Venous) 11/14/2024 4:12 PM CDT 11/14/2024 4:12 PM CDT Anum Larose P.A.-C. LAB BLOOD TROPONIN Final Result [facility] [address] [place] [phone], [facility] CNFL [facility] in [address] [address] * Blood Gas, Venous, POCT, Blood (11/14/2024 4:08 PM CDT) pH, Venous, POCT, B 7.34 7.32 - 7.43 11/14/2024 4:12 PM CDT CNFL pCO2, Venous, POCT, B 48 41 - 51 mm Hg 11/14/2024 4:12 PM CDT CNFL pO2, Venous, POCT, B 25 Not applicable mm Hg 11/14/2024 4:12 PM CDT CNFL HCO3, Venous, POCT, B 26 Not applicable mmol/L 11/14/2024 4:12 PM CDT CNFL Base Excess, Venous, POCT, B 0 Not applicable mmol/L 11/14/2024 4:12 PM CDT CNFL O2 Saturation, Venous, POCT, B 41 Not applicable % 11/14/2024 4:12 PM CDT CNFL Sample Type, Blood Gas, POCT RITO 11/14/2024 4:12 PM CDT CNFL Blood (Blood, Venous) 11/14/2024 4:08 PM CDT 11/14/2024 4:08 PM CDT us Belen Stroud APRN, C.N.P., D.N.P. LAB POCT O RDERABLES - DEVICE Final Result [facility] [address] [place] [address], [facility] CNFL [facility] in [address] [address] * (ABNORMAL) CBC with Differential, Blood (11/14/2024 4:08 PM CDT) Hemoglobin 16.9(H) 13.2 - 16.6 g/dL 11/14/2024 4:11 PM CDT CNFL Hematocrit 50.1(H) 38.3 - 48.6 % 11/14/2024 4:11 PM CDT CNFL Erythrocytes 5.30 4.35 - 5.65 x10(12)/L 11/14/2024 4:11 PM CDT CNFL MCV 94.5 78.2 - 97.9 fL 11/14/2024 4:11 PM CDT CNFL RBC Distrib Width 12.5 11.8 - 14.5 % 11/14/2024 4:11 PM CDT CNFL Platelet Count 249 135 - 317 x10(9)/L 11/14/2024 4:11 PM CDT CNFL Leukocytes 16.0(H) 3.4 - 9.6 x10(9)/L 11/14/2024 4:11 PM CDT CNFL Neutrophils 15.13(H) 1.56 - 6.45 x10(9)/L 11/14/2024 4:11 PM CDT CNFL Lymphocytes 0.71(L) 0.95 - 3.07 x10(9)/L 11/14/2024 4:11 PM CDT CNFL Monocytes 0.15(L) 0.26 - 0.81 x10(9)/L 11/14/2024 4:11 PM CDT CNFL Eosinophils <0.04 0.03 - 0.48 x10(9)/L 11/14/2024 4:11 PM CDT CNFL Basophils <0.04 0.01 - 0.08 x10(9)/L 11/14/2024 4:11 PM CDT CNFL Blood (Blood, Venous) 11/14/2024 4:08 PM CDT 11/14/2024 4:08 PM CDT us Anum Larose P.A.-C. LAB BLOOD ADD-ON Final Re sult [facility] [address] [place] [address], [facility] CNFL [facility] in [address] [address] documented in this encounter Visit Diagnoses Diagnosis Pulmonary Nodule Computed Tomography Indeterminate- Primary Lower Abdominal Pain Unspecified Leukocytosis Hypomagnesemia Prolonged QT Interval Chronic Obstructive Pulmonary Disease Exacerbation (HCC) documented in this encounter Administered Medications Inactive Administered Medications - up to 3 most recent administrations Medication Order MAR Action Action Date Dose Rate Site cefTRIAXone injection 2 g (Rocephin) 2 g, intravenous, Once, On Tue11/14/24 at 1628, For 1 dose, If needed, reconstitute vial per package insert instructions. See IVAG for administration guidelines., Drug Monitoring Program: Pharmacist to adjust medication dosing based on indication and drug clearance factors., Indications: infection?Indications:infecti on? Given 11/14/2024 4:54 PM CDT 2 g dexAMETHasone injection 10 mg (Decadron) 10 mg, intravenous, Once, On Tue11/14/24 at 1642, For 1 dose Given 11/14/2024 4:49 PM CDT 10 mg iohexoL 350 mg iodine/mL solution 140 mL (Omnipaque) 140 mL, intravenous, Once in imaging, contrast, Starting on Tue11/14/24 at 1600, For 1 dose Given 11/14/2024 4:16 PM CDT 140 mL ipratropium-albuteroL 0.5-2.5 mg/3 mL nebulizer solution 3 mL (DuoNeb) 3 mL, nebulization, Once, On Tue11/14/24 at 1555, For 1 dose Given 11/14/2024 3:58 PM CDT 3 mL LORazepam injection 0.5 mg (Ativan) 0.5 mg, intravenous, Once, On Tue11/14/24 at 1610, For 1 dose, Shortage on injection, use oral when possible For intravenous use, dilute with equal volume of 0.9% NS Given 11/14/2024 4:28 PM CDT 0.5 mg magnesium sulfate in water IVPB 2 g 2 g, intravenous, at 25 mL/hr, Administer over 120 Minutes, Once, On Tue11/14/24 at 1639, For 1 dose New Bag 11/14/2024 4:49 PM CDT 2 g 25 mL/hr NaCl 0.9 % bolus 1,000 mL 1,000 mL, intravenous, at 1,000 mL/hr, Administer over 1 Hours, Once, On Tue11/14/24 at 1640, For 1 dose New Bag 11/14/2024 4:45 PM CDT 1,000 mL 1000 mL/hr NaCl 0.9 % bolus 1,000 mL 1,000 mL, intravenous, at 1,000 mL/hr, Administer over 1 Hours, Once, On Tue11/14/24 at 1711, For 1 dose New Bag 11/14/2024 5:40 PM CDT 1,000 mL 1000 mL/hr sodium chloride 0.9 % flush 80 mL 80 mL, intravenous, Once, On Tue11/14/24 at 1601, For 1 dose Given 11/14/2024 4:17 PM CDT 80 mL sodium chloride 0.9 % injection 10 mL 10 mL, intravenous, Once, On Tue11/14/24 at 1601, For 1 dose Given 11/14/2024 4:18 PM CDT 10 mL documented in this encounter Active and Recently Administered Medications Times are shown in CDT. Scheduled Medication Order 11/12/2024 11/13/2024 11/14/2024 cefTRIAXone injection 2 g (Rocephin) (COMPLETED) 2 g, intravenous, Once, On Tue11/14/24 at 1628, For 1 dose, If needed, reconstitute vial per package insert instructions. See IVAG for administration guidelines., Drug Monitoring Program: Pharmacist to adjust medication dosing based on indication and drug clearance factors., Indications: infection? 1654 (Given - Provid er: Gila Leblanc R.N.) dexAMETHasone injection 10 mg (Decadron) (COMPLETED) 10 mg, intravenous, Once, On Tue11/14/24 at 1642, For 1 dose 1649 (Given - Provid er: Gila Leblanc R.N.) ipratropium-albuteroL 0.5-2.5 mg/3 mL nebulizer solution 3 mL (DuoNeb) (COMPLETED) 3 mL, nebulization, Once, On Tue11/14/24 at 1555, For 1 dose 1558 (Given - Provid er: Daniel Prasad R.R.T., C.R.T.) LORazepam injection 0.5 mg (Ativan) (COMPLETED) 0.5 mg, intravenous, Once, On Tue11/14/24 at 1610, For 1 dose, Shortage on injection, use oral when possible For intravenous use, dilute with equal volume of 0.9% NS 1628 (Given - Provid er: Gila Leblanc R.N.) magnesium sulfate in water IVPB 2 g (COMPLETED) 2 g, intravenous, at 25 mL/hr, Administer over 120 Minutes, Once, On Tue11/14/24 at 1639, For 1 dose 1649 (New Bag - Prov ider: Gila Leblanc R.N.)1847 (Stopped - Provider: Gila Leblanc R.N.) NaCl 0.9 % bolus 1,000 mL (COMPLETED) 1,000 mL, intravenous, at 1,000 mL/hr, Administer over 1 Hours, Once, On Tue11/14/24 at 1640, For 1 dose 1645 (New Bag - Prov ider: Gila Leblanc R.N.)1740 (Stopped - Provider: Gila Leblanc R.N.) NaCl 0.9 % bolus 1,000 mL (COMPLETED) 1,000 mL, intravenous, at 1,000 mL/hr, Administer over 1 Hours, Once, On Tue11/14/24 at 1711, For 1 dose 1740 (New Bag - Prov ider: Pardeep BenavidezN.)1813 (Stopped - Provider: Gila Leblanc R.N.) sodium chloride 0.9 % flush 80 mL (COMPLETED) 80 mL, intravenous, Once, On Tue11/14/24 at 1601, For 1 dose 1617 (Given - Provid er: Tessy Reyna, R.T.(R)(CT), R.T.(R)) sodium chloride 0.9 % injection 10 mL (COMPLETED) 10 mL, intravenous, Once, On Tue11/14/24 at 1601, For 1 dose 1618 (Given - Provid er: Tessy Reyna, R.T.(R)(CT), R.T.(R)) PRN Medication Order 11/12/2024 11/13/2024 11/14/2024 iohexoL 350 mg iodine/mL solution 140 mL (Omnipaque) (COMPLETED) 140 mL, intravenous, Once in imaging, contrast, Starting on Tue11/14/24 at 1600, For 1 dose 161 (Given - Provid er: Tessy Reyna, R.T.(R)(CT), R.T.(R)) documented in this encounter Additional Health Concerns Infection Onset Date Last Indicated Resolved Time COVID19 Pending 11/14/2024 11/14/2024 11/14/2024 5 :50 PM CDT documented as of this encounter Care Teams Folder Gluer Operator Relationship Specialty Start Date End Date Elsewhere, Pcp PCP - General Family Medicine 08/12/18 documented as of this encounter
--- OUTSIDE RECORDS SUMMARY | 2024-11-19 22:04 | XMS_ITS | Encounter Summary ---
Author Organization [facility] Address [address] [place] [address] Care Team Providers Care Personal Security Specialist Name Role Phone Elsewhere, Pcp Primary Care Provider Unavailabl e Reason for Referral * Outpatient (Routine) - Authorized Specialty Diagnoses / Procedures Referred By Contact Referred To Contact Gastroenterology and Hepatology Diagnoses Abnormal Findings On Diagnostic Imaging Of Other Specified Body Structures Marilyn Grider, C.N.P. [address] [place] [address] Phone: tel: fax: [facility] Referral ID Status Reason Start Date Expiration Date V isits Requested Visits Authorized [id number] Authorized 11/19/2024 05/21/2026 1 1 Encounter Details Date Type Department Care Team (Late st Contact Info) Description 11/19/2024 [facility] [place] [address] [place] [address] Marilyn Grider, C.N.P. [address] [place] [phone] Abnormal Findings On Diagnostic Imaging Of Other Specified Body Structures (Primary Dx) Social History Tobacco Use Types Packs/Day Years Used Date Smoking Tobacco: Every Day Cigarettes Smokeless Tobacco: Current Chew Alcohol Use Standard Drinks/Week Comments Yes 0 (1 standard drink = 0.6 oz pur e alcohol) occassional Sex and Gender Information Value Date Recorded Sex Assigned at Not on file Legal Sex Male 10:28 AM SENIOR NET ARCHITECT Gender Identity Not on file Sexual Orientation Not on file documented as of this encounter Plan of Treatment Scheduled Referrals Name Type Priority Associated Diagnoses Order Schedule Gastroenterology & Hepatology Referral Outpatient Referral Routine Abnormal Findings On Diagnostic Imaging Of Other Specified Body Structures Expected: 11/19/2024 (Approximate), Expires: 02/19/2026 documented as of this encounter Visit Diagnoses Diagnosis Abnormal Findings On Diagnostic Imaging Of Other Specified Body Structures- Primary documented in this encounter Care Teams Personal Security Specialist Relationship Specialty Start Date End Date Elsewhere, Pcp PCP - General Family Medicine 08/12/18 documented as of this encounter
--- OUTSIDE RECORDS SUMMARY | 2024-11-20 02:03 | XMS_ITS | Encounter Summary ---
Author Organization [facility] Address [address] [place] [address] Care Team Providers Care Director Of Promotions Name Role Phone Elsewhere, Pcp Primary Care Provider Unavailabl e Reason for Visit * Reason Onset Date Comments Abdominal Pain 11/14/2024 Encounter Details Date Type Department Care Team (Late st Contact Info) Description 11/14/2024 Nurse Triage Department of Family Medicine, [facility], in [place], [place] [address] [place] [address] Martha Condon R.N. Abdominal Pain Social History Tobacco Use Types Packs/Day Years Used Date Smoking Tobacco: Every Day Cigarettes Smokeless Tobacco: Current Chew Alcohol Use Standard Drinks/Week Comments Yes 0 (1 standard drink = 0.6 oz pur e alcohol) occassional Sex and Gender Information Value Date Recorded Sex Assigned at Not on file Legal Sex Male 10:28 AM DIRECTOR PEDIATRIC Gender Identity Not on file Sexual Orientation Not on file documented as of this encounter Miscellaneous Notes * Telephone Encounter - Martha Condon, R.N. - 11/14/2024 3:17 PM CDT Chief Complaint / Reason for Call Patient is a 69 y.o. male calling regarding Abdominal Pain. Assessment Concern: His friend is calling about his severe lower abdominal pain. She states he has a constant sharp shooting pain. Present for: 24 hours Home cares tried: [facility] Calling to request: Appointment The recommended disposition is Go to ED Now. Reason for Disposition [1] SEVERE pain (e.g., excruciating) AND [2] present > 1 hour [1] SEVERE pain AND [2] age > 60 years Protocols used: Abdominal Pain - Jgka-Htcfj-IV Care Advice Patient/Caregiver understands and will follow care advice?: Yes, able to teach back Abdominal Pain - [id number]-BG Nurse Martha Shetty Nov 14, 2024 03:20 PM Care Advice GO TO ED NOW: * You need to be seen in the Emergency Department. * Go to the ED at local Hospital. * Leave now. Drive carefully. ANOTHER ADULT SHOULD DRIVE: * It is better and safer if another adult drives instead of you. documented in this encounter Plan of Treatment Not on file documented as of this encounter Visit Diagnoses Not on filedocumented in this encounter Care Teams Director Of Promotions Relationship Specialty Start Date End Date Elsewhere, Pcp PCP - General Family Medicine 08/12/18 documented as of this encounter
--- OUTSIDE RECORDS SUMMARY | 2024-11-20 02:03 | XMS_ITS | Clinical Summary ---
Author Organization [facility] er Address [address] [place] [address] Care Team Providers Care Groundwater Consultant Name Role Phone Marilyn Grider APRN, INLETTER Primary Care Provi alexa Allergies Active Allergy Reactions Criticality Noted Date Comments Amoxicillin 10/23/2018 Lip swelling Medications aspirin 325 MG tablet Take 1 tablet (325 mg total) by mouth 1 (one) time each day Active tiotropium (Spiriva HandiHaler) 18 MCG per inhalation capsuleIndications :Chronic obstructive pulmonary disease, unspecified COPD type (HCC) Take ONE capsule ONCE a day for COPD 90 capsule 3 12/31/19 21 Active ibuprofen (ADVIL) 800 MG tablet 02/09/20 24 Active chlorthalidone (HYGROTON) 25 MG tabletIndications: Primary hypertension TAKE 1 TABLET BY MOUTH IN THE MORNING FOR BLOOD PRESSURE 90 tablet 03/06/20 24 Active olmesartan (Benicar) 40 MG tabletIndications: Primary hypertension Take one a day for high blood pressure 90 tablet 03/06/20 24 Active atorvastatin (LIPITOR) 40 MG tabletIndications: Mixed hyperlipidemia TAKE ONE TABLET BY MOUTH AT NIGHT FOR CHOLESTEROL 90 tablet 03/06/20 24 Active citalopram (CeleXA) 20 MG tabletIndications: Depression, unspecified depression type TAKE ONE TABLET BY MOUTH EVERY DAY FOR DEPRESSION/ANXI ETY 90 tablet 03/06/20 24 Active Cholecalciferol (Vitamin D3) 125 MCG (5000 UT) tabletIndications: Vitamin D deficiency TAKE 1 TABLET BY MOUTH DAILY FOR VITAMIN D DEFICIENCY 90 tablet 3 03/19/20 24 Active albuterol HFA (PROVENTIL HFA;VENTOLIN HFA) 108 (90 Base) MCG/ACT inhalerIndications :Chronic obstructive pulmonary disease, unspecified COPD type (HCC) INHALE TWO PUFFS BY MOUTH EVERY 4 TO 6 HOURS NEEDED FOR SHORTNESS OF BREATH OR WHEEZING 18 g 2 04/02/20 24 Active Active Problems Problem Noted Date Diagnosed Date JOSEPHINE (obstructive sleep apnea) 05/24/2023 Central sleep apnea 05/24/2023 Obesity with body mass index 30 or greater 12/17 Mixed hyperlipidemia 03/28/2021 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 Mild chronic obstructive pulmonary disease 02/15 Shortness of breath 02/15/2013 Bereavement reaction 02/12/2013 Multiple premature ventricular complexes 013 Sleep disorder 01/16/2013 Hypertension 01/15/2013 Tobacco dependence syndrome 11/18/2011 Immunizations Immunization Administration Dates Next Due COVID-19, mRNA, LNP-S, PF, 3 0mcg/0.3mL dose Pfizer 08/27/2020,08/06/2020 COVID-19, mRNA, LNP-S, bival ent booster 12 yr and older, PF, 30mcg/0.3mL dose (Tutellus) 03/19/2022 Influenza 6mo-64yrs Quad Pre servative Free IM 02/18/2015 SARS-COV-2 (COVID-19) vaccin e, vector non-replicating, recombinant spike protein- Ad26, preservative free, 0.5mL (LookAcross) 03/20/2021,08/27/2020,08/06/2020 Tdap 02/18/2015 Family History Medical History Relation Comments Alcohol abuse Brother 1 Alcohol abuse Brother 2 Alcohol abuse Brother 3 COPD Father Hypertension Father Vision loss Father Cancer Mother Brain Hypertension Mother Vision loss Mother Relation Status Comments Brother 1 Alive Brother 2 Alive Brother 3 Alive Father Mother Son 1 Alive Son 2 Alive Social History Tobacco Use Types Packs/Day Years Used Date Smoking Tobacco: Every Day Cigarettes Smokeless Tobacco: Current Snuff Tobacco Cessation:Ready to Q uit: No; Counseling Given: No Alcohol Use Standard Drinks/Week Comments No 0 (1 standard drink = 0.6 oz pur e alcohol) socially [id number] Health Literacy Answer Date Recor ded How often do you need to hav e someone help you when you read instructions, pamphlets, or other written material from your doctor or pharmacy? Never 03/01/2024 [facility] Utilities Answer Date Recorded In the past 12 months has th e electric, gas, oil, or water company threatened to shut off services in your home? No 03/01/2024 Social Connection and Isolat ion Panel [NHANES] Answer Date Recorded In a typical week, how many times do you talk on the phone with family, friends, or neighbors? More than three times a week 03/01/2024 How often do you get togethe r with friends or relatives? More than three times a week 03/01/2024 How often do you attend chur ch or gnosticist services? More than 4 times per year 03/01/2024 Do you belong to any clubs o r organizations such as roman catholic groups, unions, fraternal or athletic groups, or school groups? Yes 03/01/2024 How often do you attend meet ings of the clubs or organizations you belong to? 1 to 4 times per year 03/01/2024 Are you , , di vorced, , never , or living with a partner? 03/01/2024 AUDIT-C Answer Date Recorded Q1: How often do you have a drink containing alc ohol? 2-3 times a week 03/01/2024 Q2: How many drinks containi ng alcohol do you have on a typical day when you are drinking? 1 or 2 03/01/2024 Q3: How often do you have si x or more drinks on one occasion? Never 03/01/2024 Overall Financial Resource Strain (CARDIA) Answe r Date Recorded How hard is it for you to pa y for the very basics like food, housing, medical care, and heating? Not very hard 03/01/2024 PHQ-2 Answer Date Recorded PHQ-9 Total Score 0 03/01/2024 [facility] - Occupational Stress Questionnaire Answer Date Recorded Do you feel stress - tense, restless, nervous, or anxious, or unable to sleep at night because your mind is troubled all the time - these days? Not at all 03/01/2024 Exercise Vital Sign Answer Date Recorde d On average, how many days pe r week do you engage in moderate to strenuous exercise (like a brisk walk)? 2 days 03/01/2024 On average, how many minutes do you engage in exercise at this level? 10 min 03/01/2024 Hunger Vital Sign Answer Date Recorded Within the past 12 months, y ou worried that your food would run out before you got the money to buy more. Never true 03/01/20 24 Within the past 12 months, t he food you bought just didn't last and you didn't have money to get more. Never true 03/01/2024 PRAPARE - Transportation Answer Date Re corded In the past 12 months, has l ack of transportation kept you from medical appointments or from getting medications? No 02/20 In the past 12 months, has l ack of transportation kept you from meetings, work, or from getting things needed for daily living? No 03/01/2024 Housing Stability Vital Sign Answer Juvencio e Recorded In the last 12 months, was t here a time when you were not able to pay the mortgage or rent on time? No 03/01/2024 In the past 12 months, how m any times have you moved where you were living? 0 03/01/2024 At any time in the past 12 m [facility], were you homeless or living in a retirement (including now)? No 03/01/2024 Sex and Gender Information Value Date Recorded Sex Assigned at Not on file Legal Sex Male 7:38 PM CDT Gender Identity Not on file Sexual Orientation Not on file Occupation Industry Job Start Date Job End Date Not on file Not on file Not on file Not on file Last Filed Vital Signs Vital Sign Reading Time Taken Comments Blood Pressure 139/78 03/01/2024 8:36 AM CDT Pulse 63 03/01/2024 8:36 AM CDT Temperature 36.3 C (97.4 F) 03/01/2024 8:36 AM CDT Respiratory Rate 18 03/01/2024 8:36 AM CDT Oxygen Saturation 91% 03/01/2024 8:36 AM CDT Inhaled Oxygen Concentration - - Weight 122 kg (269 lb 8 oz) 03/01/2024 8:36 AM C DT Height 185.4 cm (6' 1) 03/01/2024 8:36 AM CDT Body Mass Index 35.56 03/01/2024 8:36 AM CDT Plan of Treatment Health Maintenance Due Date Last Done Comments CT Colonography 1956 FIT-DNA 1956 Sigmoidoscopy 1955 iFOBT 1955 Pneumococcal Vaccine: 50+ Years (1 of 2 - PCV) 02/05/1975 Zoster Vaccines (1 of 2) 02/05/2006 COVID-19 Vaccine ( - season) 2024 03/19/2022, 03/20/2021, 03/20/2021, Additional history exists Influenza Vaccine (Season Ended) 2025 02/18/2015 DTaP,Tdap,and Td Vaccines (2 - Td or Tdap) 02/18/2025 02/18/2015 Fall Risk Performed 03/01/2025 03/01/2024 Medicare Annual Wellness Visit (AWV) 03/01/2025 03/01/2024 Colonoscopy 12/25/2027 12/24/2022, 12/28/2018 Colorectal Cancer Screening 12/25/2027 HPV Vaccines Aged Out No longer eligi ble based on patient's age to complete this topic Insurance MEDICARE [facility] Care Teams Groundwater Consultant Relationship Specialty Start Date End Date Marilyn Grider, DIRECTOR BUSINESS DEVELOPMENT, INLETTER [address] [place] [address] [place] [id number] PCP - General Family Medicine 04/05/24
--- OUTSIDE RECORDS SUMMARY | 2024-11-20 02:03 | XMS_ITS | Encounter Summary ---
Author Organization [facility] Address [address] [place] [address] Care Team Providers Care Student Finance Specialist Name Role Phone Marilyn Grider APRN, GAS METER CHECKER Primary Care Provi alexa Reason for Visit * Reason Comments Med Refill Encounter Details Date Type Department Care Team (Late st Contact Info) Description 01/16/2024 Refill [place] [address] [place] [address] Matt Medina MD Chronic obstructive pulmonary disease, unspecified COPD type (HCC) Social History Tobacco Use Types Packs/Day Years Used Date Smoking Tobacco: Every Day Cigarettes Smokeless Tobacco: Current Snuff Alcohol Use Standard Drinks/Week Comments No 0 (1 standard drink = 0.6 oz pur e alcohol) socially AUDIT-C Answer Date Recorded Q1: How often do you have a drink containing alc ohol? Never 05/19/2020 Average Number of Drinks Not on file 020 Frequency of Binge Drinking Not on file 04/23 Overall Financial Resource Strain (CARDIA) Answe r Date Recorded How hard is it for you to pa y for the very basics like food, housing, medical care, and heating? Not hard at all 05/19/2020 PHQ-2 Answer Date Recorded PHQ-9 Total Score 0 03/04/2023 Hunger Vital Sign Answer Date Recorded Within the past 12 months, y ou worried that your food would run out before you got the money to buy more. Never true 05/19/20 20 Within the past 12 months, t he food you bought just didn't last and you didn't have money to get more. Never true 05/19/2020 PRAPARE - Transportation Answer Date Re corded In the past 12 months, has l ack of transportation kept you from medical appointments or from getting medications? No 04/23 In the past 12 months, has l ack of transportation kept you from meetings, work, or from getting things needed for daily living? No 05/19/2020 Sex and Gender Information Value Date Recorded Sex Assigned at Not on file Legal Sex Male 7:38 PM CDT Gender Identity Not on file Sexual Orientation Not on file Occupation Industry Job Start Date Job End Date Not on file Not on file Not on file Not on file documented as of this encounter Miscellaneous Notes * Telephone Encounter - Alexandra Hargrove - 01/19/2024 10:21 AM CDT Letter sent. * Telephone Encounter - Sarah Jesus LPN - 01/18/2024 11:26 AM CDT Patient is due for annual visit on or after 03/04/24 appointment. PSR: Please contact patient to assist with scheduling. * Telephone Encounter - Mitali Messina MA - 01/18/2024 11:11 AM CDT Patient is due for annual visit on or after 03/04/24 appointment. PSR: Please contact patient to assist with scheduling. Upcoming appointment with provider: Visit date not found Last visit in provider department: 03/04/23 Last visit requested medication was discussed: Last Rx: 03/04/23 36 g and 11 refills Requested Prescriptions Pending Prescriptions Disp Refills albuterol HFA (PROVENTIL HFA;VENTOLIN HFA) 108 (90 Base) MCG/ACT inhaler [Pharmacy Med Name: ALBUTEROL SULFATE HFA 108 AERS] 17 g 8 Sig: INHALE TWO PUFFS BY MOUTH EVERY 4 TO 6 HOURS NEEDED FOR SHORTNESS OF BREATH OR WHEEZING No ACT score on file Vitals: BP Readings from Last 2 Encounters: 07/12/23 140/68 05/24/23 136/72 : documented in this encounter Plan of Treatment Not on file documented as of this encounter Visit Diagnoses Diagnosis Chronic obstructive pulmonary disease, unspecified COPD type (HCC) documented in this encounter Care Teams Student Finance Specialist Relationship Specialty Start Date End Date Marilyn Grider, G[place]ALO, GAS METER CHECKER [address] [place] [address] PCP - General Family Medicine 04/05/24 documented as of this encounter
--- OUTSIDE RECORDS SUMMARY | 2024-11-20 02:03 | XMS_ITS | Encounter Summary ---
Author Organization [facility] er Address [address] [place] [address] Care Team Providers Care Dethistler Operator Name Role Phone Marilyn Grider APRN, CEMETERY COUNSELOR Primary Care Provi alexa Reason for Visit * Reason Comments Med Refill Encounter Details Date Type Department Care Team (Late st Contact Info) Description 06/29/2021 Refill [place] [address] [place] [address] Matt Medina MD Essential hypertension Social History Tobacco Use Types Packs/Day Years Used Date Smoking Tobacco: Every Day Cigarettes Smokeless Tobacco: Current Snuff Alcohol Use Standard Drinks/Week Comments No 0 (1 standard drink = 0.6 oz pur e alcohol) AUDIT-C Answer Date Recorded Q1: How often [...] Answer Date Recorded PHQ-9 Total Score 0 07/03/2021 Hunger Vital Sign Answer Date Recorded Within [...] encounter Miscellaneous Notes * Telephone Encounter - Dora Nathan LPN - 06/29/2021 7:55 AM CST Last Rx: Lisinopril 40 mg 03/28/2021 # 90, 3 refills Hydrochlorothiazide 25 mg 03/28/2021 # 90, 3 refills Requested Prescriptions Pending Prescriptions Disp Refills ??? lisinopril (ZESTRIL) 40 MG tablet [Pharmacy Med Name: LISINOPRIL 40MG TABS] 90 tablet 3 Sig: TAKE ONE TABLET BY MOUTH EVERY DAY FOR BLOOD PRESSURE ??? hydroCHLOROthiazide (HYDRODIURIL) 25 MG tablet [Pharmacy Med Name: HYDROCHLOROTHIAZIDE 25MG TABS] 90 tablet 3 Sig: TAKE ONE TABLET BY MOUTH EVERY DAY FOR BLOOD PRESSURE E-Prescribing Status: Receipt confirmed by pharmacy (03/28/2021 10:35 AM CDT) EVILLE ACTOR documented in this encounter Plan of Treatment Not on file documented as of this encounter Visit Diagnoses Diagnosis Essential hypertension Unspecified essential hypertension documented in this encounter Additional Health Concerns Infection Onset Date Last Indicated Resolved Time COVID-19 Rule Out 07/03/2021 07/03/2021 07/03/2021 2:08 PM VAUDEVILLE ACTOR COVID-19 Confirmed 07/03/2021 07/03/2021 8:17 PM CDT documented as of this encounter Care Teams Dethistler Operator Relationship Specialty Start Date End Date Marilyn Grider, DEVOPS SOLUTIONS ARCHITECT, CEMETERY COUNSELOR [address] [place] [address] PCP - General Family Medicine 04/05/24 documented as of this encounter
--- OUTSIDE RECORDS SUMMARY | 2024-11-20 02:03 | XMS_ITS | Encounter Summary ---
Author Organization [facility] Address [address] [place] [address] Care Team Providers Care Rear Admiral Name Role Phone Elsewhere, Pcp Primary Care Provider Unavailabl e Reason for Visit * Reason Onset Date Comments Appointment 11/19/2024 Encounter Details Date Type Department Care Team (Late st Contact Info) Description 11/19/2024 Nurse Triage Department of Family Medicine, [facility], in [place], [place] [address] [place] [address] Gisela Cornejo R.N. Appointment Social History Tobacco Use Types Packs/Day Years Used Date Smoking Tobacco: Every Day Cigarettes Smokeless Tobacco: Current Chew Alcohol Use Standard Drinks/Week Comments Yes 0 (1 standard drink = 0.6 oz pur e alcohol) occassional Sex and Gender Information Value Date Recorded Sex Assigned at Not on file Legal Sex Male 10:28 AM VOLTAGE INSPECTOR Gender Identity Not on file Sexual Orientation Not on file documented as of this encounter Miscellaneous Notes * Telephone Encounter - Gisela Cornejo, R.N. - 11/19/2024 10:07 AM CDT Chief Complaint / Reason for Call Patient is a 69 y.o. male calling regarding Appointment. Assessment Concern: Patient seen in ED on 11/14/24 fir COPD exacerbation. Treated with steroids, antibiotics, and magnesium. Advised inpatient but declined and discharged to home. Denies any worsening of symptoms. Blood culture positive for GRAM Positive Bacillus, Gram Negative Bacillus. Call was placed to patient yesterday regarding these test results and he was advised to follow up with his PCP this week or to return to the ED with any worsening or worrisome symptoms. Lu, his significant other, denies that Mir has any worsening of symptoms. Home cares tried: see above Calling to request: follow up appointment The recommended disposition is Other. See a health care provider this week for ED follow up. Caller was warm transferred to [place], Patient Appointment Certified Pathology Assistant at the clinic for further assistance. documented in this encounter Plan of Treatment Not on file documented as of this encounter Visit Diagnoses Not on filedocumented in this encounter Care Teams Rear Admiral Relationship Specialty Start Date End Date Elsewhere, Pcp PCP - General Family Medicine 08/12/18 documented as of this encounter
--- OUTSIDE RECORDS SUMMARY | 2024-11-20 02:03 | XMS_ITS | Encounter Summary ---
Author Organization [facility] Address [address] [place] [address] Care Team Providers Care Career Placement Services Counselor Name Role Phone Marilyn Grider APRN, STATISTICAL CLERK ADVERTISING Primary Care Provi alexa Reason for Visit * Reason Onset Date Comments Covid Triage 06/19/2020 Encounter Details Date Type Department Care Team (Late st Contact Info) Description 06/19/2020 Telephone [facility] [address] [place], [place] [id number] She Anthony PA-C [address] [place] [address] Covid Triage Social History Tobacco Use Types Packs/Day Years [...] Answer Date Recorded PHQ-9 Total Score 0 04/04/2020 Hunger Vital Sign Answer Date Recorded Within [...] as of this encounter Plan of Treatment Not on file documented as of this encounter Visit Diagnoses Not on filedocumented in this encounter Additional Health Concerns Infection Onset Date Last Indicated Resolved Time COVID-19 Rule Out 07/03/2021 07/03/2021 07/03/2021 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
--- OUTSIDE RECORDS SUMMARY | 2024-11-20 02:03 | XMS_ITS | Encounter Summary ---
Author Organization [facility] Address [address] [place] [address] Care Team Providers Care Is Architect Name Role Phone Elsewhere, Pcp Primary Care Provider Unavailabl e Reason for Referral * Outpatient (Routine) - Authorized Specialty Diagnoses / Procedures Referred By Contact Referred To Contact Gastroenterology and Hepatology Diagnoses Abnormal Findings On Diagnostic Imaging Of Other Specified Body Structures Marilyn Grider, C.N.P. [address] [place] [address] Phone: tel: fax: [facility] Referral ID Status Reason Start Date Expiration Date V isits Requested Visits Authorized [id number] Authorized 11/19/2024 05/21/2026 1 1 Encounter Details Date Type Department Care Team (Late st Contact Info) Description 11/19/2024 [facility] [address] [place] [address] Marilyn Grider, C.N.P. 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
--- OUTSIDE RECORDS SUMMARY | 2024-11-20 02:03 | XMS_ITS | Encounter Summary ---
Author Organization [facility] Address [address] [place] [address] Care Team Providers Care Cnc Supervisor Name Role Phone Elsewhere, Pcp Primary Care Provider Unavailabl e Encounter Details Date Type Department Care Team (Late st Contact Info) Description 11/15/2024 Results Follow-Up [facility] [address] [place] [id number] Christa Omalley, R.N. 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 - 11/18/2024 12:31 PM CDT Blood culture #1 is positive for GRAM POSITIVE BACILLUS Growth after 4 days. in 1/3 bottles. Blood culture #2 is positive for GRAM NEGATIVE BACILLUS Growth after 85 hours in 1/3 bottles. Patient was seen in the ED on 11/14/24 for c/o shortness of breath and abdominal pain. He was dx with Pulmonary Nodule Computed Tomography Indeterminate Lower Abdominal Pain Unspecified Leukocytosis Hypomagnesemia Prolonged QT Interval Chronic Obstructive Pulmonary Disease Exacerbation (HCC) Discharged with rx doxy, prednisone, magnesium, and cefdinir. Patient and results reviewed by [facility] APRN and he states Call him. See how he's doing. Looks like he's bacteremic. If he's improving and doing better on abx close follow up with PCP next week. If he's the same or worse, come back to ED to reassess. I was able to contact the patient. He states he is doing better. Not 100% but much better. He was informed of the blood cultures and the recommendation to f/u with his PCP this week. He was also instructed to return to the ED with any worsening or worrisome symptoms. He is in agreement with the plan and will call tomorrow to f/u with PCP. Ana Paula Acosta R.N. 11/18/24 1231 documented in this encounter Plan of Treatment Not on file documented as of this encounter Visit Diagnoses Not on filedocumented in this encounter Care Teams Cnc Supervisor Relationship Specialty Start Date End Date Elsewhere, Pcp PCP - General Family Medicine 08/12/18 documented as of this encounter
--- OUTSIDE RECORDS SUMMARY | 2024-11-20 02:03 | XMS_ITS | Clinical Summary ---
Author Organization [facility] Address [address] [place] [address] Care Team Providers Care Leg Assembler Name Role Phone Elsewhere, Pcp Primary Care Provider Unavailabl e Source Comments Patient records contain information from all sites at [facility]. For routine questions regarding patient records, call [phone] during business hours, M-F 8:00 AM - 5:00 PM Central Time. Record requests for emergency care only can be directed to [phone] at any time.[facility] Allergies Active Allergy Reactions Criticality Noted Date Comments Amoxicillin Other (see comments) 10/23/2018 Lip swelling Medications citalopram (CeleXA) 10 mg tablet Take 10 mg by mouth daily. Active lisinopril (PRINIVIL,ZESTR IL) 20 mg tablet Take 20 mg by mouth daily. Active hydroCHLOROthia zide (HYDRODIURIL) 12.5 mg tablet Take 12.5 mg by mouth daily. Active atorvastatin (LIPITOR) 40 mg tablet Take 40 mg by mouth daily. Active aspirin 325 mg tablet Take 325 mg by mouth. Active albuterol (PROVENTIL HFA,VENTOLIN HFA) 90 mcg/actuation inhaler 10/08/19 19 Active loratadine (CLARITIN) 10 mg tablet Take 10 mg by mouth. 05/13/20 17 Active tiotropium (SPIRIVA WITH HANDIHALER) 18 mcg inhalation capsule Inhale contents of one capsule daily. ( Inhale 2 times per capsule to make sure you inhale all of the drug) 06/30/19 19 Active polyethylene glycol (MIRALAX) 17 gram/dose oral powder Mix and take as directed according to booklet Preparation Instructions for Your Colonoscopy. 238 g 12/19/19 19 Active fluticasone propionate (FLOVENT HFA) 110 mcg/actuation inhaler Inhale 2 puffs 2 (two) times a day for 10 days. Rinse mouth with water after use to reduce aftertaste and incidence of candidiasis. Do not swallow. 12 g 07/03/19 22 Active cefdinir (Omnicef) 300 mg capsuleIndicati ons:Leukocytosi s Take 1 capsule (300 mg total) by mouth 2 (two) times a day before morning and evening meals. 10 capsule 11/15/19 25 Active azithromycin (Zithromax) 250 mg tabletIndicatio ns:Leukocytosis Take 2 tablets (500 mg total) by mouth daily for 1 day, THEN 1 tablet (250 mg total) daily for 4 days. 6 tablet 11/15/19 25 025 Discontinu ed(Side effects) doxycycline monohydrate (Avidoxy) 100 mg tabletIndicatio ns:Leukocytosis Take 1 tablet (100 mg total) by mouth 2 (two) times a day before morning and evening meals for 5 days. 10 tablet 11/15/19 25 025 predniSONE (Deltasone) 50 mg tablet Take 1 tablet (50 mg total) by mouth daily for 5 days. 5 tablet 11/15/19 25 025 magnesium oxide (Mag-Ox) 400 mg (241.3 mg magnesium) tablet Take 1 tablet (400 mg total) by mouth 2 (two) times a day before morning and evening meals for 3 days. 6 tablet 11/15/19 25 025 Active Problems Problem Noted Date Diagnosed Date Abuse Tobacco Smoking 12/17/2022 Obesity Body Mass Index 30-39.9 Adult 12/17/2022 Hypertension Essential Primary 12/17/2022 Screening Colon Cancer Average Risk 12/18/2018 Overview (12/18/2018): Added automatically from request for surgery [id number] Encounters Date Type Department Care Team Description 11/19/2024 [facility] [address] [place] [address] Marilyn Grider, C.N.P. Abnormal Findings On Diagnostic Imaging Of Other Specified Body Structures (Primary Dx) 11/19/2024 Nurse Triage Department of [facility], [facility], in [place], [place] [address] [phone] Gisela Cornejo R.N. Appointment 11/15/2024 Results Follow-Up [facility] [address] [place] [id number] Christa Omalley R.N. Troponin T, 2 Hour with 6 Hour Reflex, 5th Gen, Bacteria / Mary Culture, Blood #1, Bacteria / Mary Culture, Blood #2 11/14/2024 3:42 PM CDT - 11/14/2024 6:49 PM CDT Emergency [facility] [address] [place] [address], [place] [id number] Belen Stroud APRN C.N.P., D.N.P. Pulmonary Nodule Computed Tomography Indeterminate (Primary Dx); Lower Abdominal Pain Unspecified; Leukocytosis; Hypomagnesemia; Prolonged QT Interval; Chronic Obstructive Pulmonary Disease Exacerbation (HCC) Discharge Disposition: Home or Self Care 11/14/2024 Nurse Triage Department of [facility], [facility], in [place], [place] [address] [place] [id number] Martha Condon R.N. 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 Gender Identity Not on file Sexual Orientation Not on file Last Filed Vital Signs [...] 8.8 oz) 11/14/2024 3:53 PM CDT Height 185.4 cm (6' 1) 12/28/2018 12:05 PM CDT Body Mass Index 34.9 12/28/2018 12:05 PM CDT Plan of Treatment Health Maintenance Due Date Last Done Comments CT Colonography 1955 Cologuard 1955 Hepatitis C Screening 1955 Office Visit for Blood Pressure Check / Re-check 1955 Tobacco Cessation counseling 1955 Pneumococcal vaccine (50+ years) (1 of 2 - PCV) 02/05/1975 Zoster Vaccines (1 of 2) 02/05/2006 RSV vaccine - (32-36 weeks) or 60+ years (1 - Risk 60-74 years 1-dose series) 2016 Colonoscopy 12/25/2023 12/24/2022, 12/28/2018 Colorectal Cancer Surveillance 12/25/2023 COVID-19 Vaccine ( - season) 2024 03/19/2022, 03/20/2021, 08/27/2020, Additional history exists Depression Screening (Annual PHQ-2) 05/23/2024 Fall Risk Screen (Annual) 05/23/2024 DTaP,Tdap,and Td Vaccines (2 - Td or Tdap) 02/18/2025 02/18/2015 Influenza Vaccine (#1) 2025 02/18/2015 Creatinine Level (Kidney Function Test) 11/14/2025 11/14/2024, 03/19/2022, 04/03/2021, Additional history exists Potassium Level 11/14/2025 11/14/2024, 02/21, 04/03/2021, Additional history exists Sodium Level 11/14/2025 11/14/2024, 02/21, 04/03/2021, Additional history exists Fasting Glucose for Diabetes Screening 11/15/2027 11/14/2024 Abdominal Aortic Aneurysm (AAA) Screen Completed 11/14/2024 IPV Vaccines Aged Out No longer eligi ble based on patient's age to complete this topic Procedures Procedure Name Priority Date/Time Associated Diagnosis Comments CRITICAL CARE Routine 11/14/2024 6:49 PM CDT LACTATE, B/P STAT 11/14/2024 6:19 PM CDT TROPONIN T, 2H/6H REFLEX, 5TH GEN, P STAT 11/14/2024 6:19 PM CDT ECG Routine 11/14/2024 6:00 PM CDT INFLUENZA A, B, RSV, PCR, POCT STAT 11/14/2024 5:27 PM CDT SARS CORONAVIRUS 2, PCR RAPID, V STAT 11/14/2024 5:27 PM CDT HC URINALYSIS AUTO W MICRO STAT 11/14/2024 5:10 PM CDT URINALYSIS WITH MICROSCOPIC IF INDICATED, U STAT 11/14/2024 5:10 PM CDT MAGNESIUM, S STAT 11/14/2024 4:56 PM CDT BACTERIA / MARY CULTURE, BLOOD STAT 11/14/2024 4:56 PM CDT COMPREHENSIVE METABOLIC PANEL, S/P STAT 11/14/2024 4:44 PM CDT LIPASE, S/P STAT 11/14/2024 4:44 PM CDT LACTATE FOR SEPSIS WITH REFLEX STAT 11/14/2024 4:44 PM CDT BACTERIA / MARY CULTURE, BLOOD STAT 11/14/2024 4:44 PM CDT ECG STAT 11/14/2024 4:[address] ABDOMEN PELVIS WITH IV CONTRAST RAD - Semiurgent (Fast; most ED patients; some inpatients) 11/14/2024 4:[address] CHEST ANGIOGRAM AND PULMONARY ARTERIES WITH IV CONTRAST RAD - Semiurgent (Fast; most ED patients; some inpatients) 11/14/2024 4:23 PM CDT NT-PRO B-TYPE NATRIURETIC PEPTIDE (BNP), S STAT 11/14/2024 4:12 PM CDT TROPONIN T, BASELINE, 5TH GEN, P STAT 11/14/2024 4:12 PM CDT VBG (VENOUS BLOOD GAS), POCT, B STAT 11/14/2024 4:08 PM CDT CBC WITH DIFFERENTIAL, B STAT 11/14/2024 4:08 PM CDT COLONOSCOPY 12/24/2022 12:46 PM CDT from Last 3 Months or Most Recently Relevant to Health Maintenance Results * Critical Care (11/14/2024 6:49 PM CDT) Narrative Anum Larose P.A.-C. - 11/14/2024 6:49 PM CDT Anum Larose P.A.-C. 11/15/2024 11:27 AM Critical Care Performed by: Anum Larose P.A.-Kurt. Authorized by: Anum Larose P.A.-Kasi Critical care provider statement: Critical care total [...] from another provider in my specialty: no us Anum Larose P.A.-C. PROCEDURE/MINOR SURGICAL ORDERABLES Final Result * (ABNORMAL) Troponin T, 2 Hour with [...] PM CDT 11/14/2024 6:22 PM CDT Anum AvendanoATheresa-C. LAB BLOOD TROPONIN Final Result Performing Organization Address City/[facility]/[place] [address], [address] [address] * (ABNORMAL) Lactate (11/14/2024 6:19 PM CDT) Lactate, P 2.5(H) 0.5 - 2.2 mmol/L 11/14/2024 6:38 PM CDT CNFL Blood (Blood, Venous) 11/14/2024 6:19 PM CDT 11/14/2024 6:22 PM CDT Anum Perkins-C. LAB BLOOD NON ADD-ON Telma l Result [address] [address], [facility] [address] [address] * ECG 12 Lead (11/14/2024 6:00 PM CDT) Only the most recent of2 resultswithin the time period is included. Ventricular Rate ECG/Min 87 BPM MUSE DE Interval 228 ms MUSE QRSD Interval 96 ms MUSE QT Interval 434 ms MUSE QTC Interval 522 ms MUSE P [place] 71 degrees MUSE R [place] -53 degrees MUSE T Wave [place] 68 degrees MUSE 11/14/2024 6:00 PM CDT 11/14/2024 6:12 PM CDT Impressions MUSE - 11/14/2024 6:11 PM CDT Sinus rhythm with 1st degree A-V block Left anterior fascicular block Nonspecific T wave abnormality Prolonged QT When compared with ECG of 14-Nov-2024 16:28, T waves have changed DE interval has increased QT has lengthened Revised Report Narrative Procedure Note Jean Claude Madsen M.D., Ph.D. - 11/14/2024 IMPRESSION: Sinus rhythm with 1st degree A-V block Left anterior fascicular block Nonspecific T wave abnormality Prolonged QT When compared with ECG of 14-Nov-2024 16:28, T waves have changed DE interval has increased QT has lengthened Revised Report Belen Stroud APRN, C.N.P., D.N.P. ECG ORDERA BLES Edited Result - Final MUSE NA * SARS Coronavirus 2, PCR Rapid Symptomatic (11/14/2024 5:27 PM CDT) Pathologist [facility] SARS CoV-2, PCR, Rapid, V Undetected Undetected 11/14/2024 5:26 PM CDT CNFL SARS Coronavirus 2, Source, Rapid Swab, Nasopharynx 11/14/2024 5:27 PM CDT CNFL Swab (Nasopharynx) 11/14/2024 5:27 PM CDT 11/14/2024 5:27 PM CDT Belen Stroud APRN, C.N.P ., D.N.P. LAB MICROBIOLOGY - GENERAL ORDERABLES Final Result Performing Organization Address [facility]/ZIP Co de Phone Number [facility] [address] [place] [address], [facility] in [address] [address] * Influenza A/B and RSV, PCR, Point of Care (11/14/2024 5:27 PM CDT) Pathologist [facility] Influenza A, POCT Negative Negative 11/14/2024 5:30 PM CDT CNFL Influenza B, POCT Negative Negative 11/14/2024 5:30 PM CDT CNFL Resp Syncytial Virus, POCT Negative Negative 11/14/2024 5:30 PM CDT CNFL Swab (Nasopharynx) 11/14/2024 5:27 PM CDT 11/14/2024 5:27 PM CDT Kurt Crooks APRN.N.P., D.N.P. LAB POCT O RDERABLES - DEVICE Final Result [facility] [address] [place] [address], [facility] in [address] [address] * (ABNORMAL) Urinalysis with Microscopic if Indicated: [...] 8.0 11/14/2024 5:18 PM CDT CNFL Specific [place] 1.010 1.001 - 1.035 11/14/2024 5:18 PM CDT CNFL Urobilinogen 0.2 0.2 - 1.0 mg/dL 11/14/2024 5:18 PM CDT CNFL Urine (Urine, Midstream) 11/14/2024 5:10 PM CDT 11/14/2024 5:15 PM CDT Belen Stroud APRN, C.N.P., D.N.P. LAB URINE ORDERABLES Final Result [facility] [address] [place] [address], [facility] CNFL [facility] [place] [address] * (ABNORMAL) Microscopic Manual (11/14/2024 5:10 PM [...] 5:10 PM CDT 11/14/2024 5:15 PM CDT Belen Stroud APRN, C.N.P., MattNTheresaP. LAB URINE ORDERABLES Final Result Performing Organization Address City/[facility]/ZIP Co de Phone Number [address] [address], [address] [address] * (ABNORMAL) Magnesium (11/14/2024 4:56 PM CDT) Magnesium, P 1.4(L) 1.7 - 2.3 mg/dL 11/14/2024 5:39 PM CDT FL Blood (Blood, Venous) 11/14/2024 4:56 PM CDT 11/14/2024 5:05 PM CDT us Anum Larose P.A.-C. LAB BLOOD ADD-ON Final Re sult Performing Organization Address [facility]/ZIP Co de Phone Number [address] [address], [address] [address] * (ABNORMAL) Lactate for Sepsis with Reflex (11/14/2024 4:44 PM CDT) Lactate, P 4.3(H) 0.5 - 2.2 mmol/L 11/14/2024 5:03 PM CDT FL Blood (Blood, Venous) 11/14/2024 4:44 PM CDT 11/14/2024 4:46 PM CDT Anum Larose P.A.-C. LAB BLOOD NON ADD-ON Telma l Result Performing Organization Address City/[facility]/ZIP Co de Phone Number [address] [address], [address] [place] [address] * Lipase (11/14/2024 4:44 PM CDT) Lipase, P 15 13 - 60 U/L 11/14/2024 5: 05 PM CDT CNFL Blood 11/14/2024 4:44 PM CDT 11/14/2024 4:46 PM CDT us Belen Stroud APRN, C.N.P., D.N.P. LAB BLOOD ADD-ON Final Result [facility] [address] [place] [address], [facility] CNFL [facility] in [address] [address] * (ABNORMAL) Comprehensive Metabolic Panel (11/14/2024 4:44 [...] PM CDT 11/14/2024 4:46 PM CDT us Belen Stroud APRN, C.N.P., D.N.P. LAB BLOOD ADD-ON Final Result [facility] [address] [place] [address], [facility] CNFL [facility] [place] [address] * CT Abdomen Pelvis with IV Contrast [...] IMG CT PROCEDURES Final R esult * Troponin T, Baseline with 2 Hour/6 Hour Reflex Biomarker Panel (11/14/2024 4:12 PM CDT) Troponin T, Baseline, 5th gen 10 <=15 ng/L 11/14/2024 4:31 PM CDT [facility] Blood (Blood, Venous) 11/14/2024 4:12 PM CDT 11/14/2024 4:12 PM CDT Anum Larose P.A.-C. LAB BLOOD TROPONIN Final Result Performing Organization Address City/[facility]/ZIP Co de Phone Number [address] [address], [address] [address] * NT-Pro B-Type Natriuretic Peptide (BNP) (11/14/2024 4:12 PM CDT) Pathologist [facility] NT-Pro BNP 225 <=540 pg/mL 11/14/2024 4:44 PM CDT [facility] Comment: NT-proBNP values less than 300 pg/mL [...] P.A.-C. LAB BLOOD ADD-ON Final Re sult [address] [address], [address] [address] * Blood Gas, Venous, POCT, Blood (11/14/2024 [...] - DEVICE Final Result Performing Organization Address City/State/[facility] Co de Phone Number [facility] [address] [place] [address], [facility] in [address] [address] * (ABNORMAL) CBC with Differential, Blood (11/14/2024 [...] P.A.-C. LAB BLOOD ADD-ON Final Re sult [facility] [address] [place] [address], [facility] CNFL [facility] in [address] [address] * COLONOSCOPY (12/24/2022 12:46 PM CDT) Narrative Procedure Note Isaiah Don M.D. - 12/24/2022 12:46 PM CDT [facility] Patient Name: Mir Olsen Procedure Date: 12/24/2022 12:46 PM Date of : 1955 Age: 67 Gender: Male Procedure: Colonoscopy Providers: Isaiah Don MD, Yuval [place] (OrderingProvider) Referring Provider: Yuval [place] Pre-op Diagnoses: Screening for colorectal malignant neoplasm Post-op Diagnoses: - Diverticulosis in the sigmoid colon. - The examination was otherwise normal on direct and retroflexionviews. - No specimens collected. Recommendation: - Repeat colonoscopy in 10 years for surveillance. Findings: The perianal and digital rectal examinations were normal. Multiple small-mouthed diverticula were found in the sigmoid colon. The exam was otherwise without abnormality on direct and retroflexion views. Medicines: Monitored Anesthesia Care Estimated Blood Loss: Estimated blood loss: none. Complications: No immediate complications. Procedure Details: The patient was seen, evaluated, and history reviewed. Airway and heart and lung exams were performed and were satisfactory for plannedsedation care. The risks, benefits and alternatives for the procedure and sedation were discussed andinformed consent was obtained. A procedural pause was conducted in the presence of assisting personnelto verify the correct patient identity and procedureto be performed. Throughout the procedure, the patient's blood pressure, pulse, and oxygen saturations were monitored continuously. The Colonoscope was introduced under directvision through the anus and advanced to the cecum, identified by appendiceal orifice and ileocecal valve. The colonoscopy was performed without difficulty. The patient tolerated the procedure well. The quality of the bowel preparation was evaluated using the BBPS ([place] BowelPreparation Scale) with scores of: Right Colon = 2 (minoramount of residual staining, small fragments of stool and/or opaque liquid, but mucosa seen well), Transverse Colon = 2 (minor amount of residual staining, small fragments of stool and/or opaque liquid, but mucosa seen well) and Left Colon = 2 (minor amount of residual staining, smallfragments of stool and/or opaque liquid, but mucosa seen well). The total BBPS score equals 6. The qualityof the bowel preparation was good. Sedation: JESÚS Don MD 12/24/2022 12:51:00 PM This report has been signed electronically. Number of Addenda: 0 Note Initiated On: 12/24/2022 12:46 PM Yuval [place] M.D. GI PROCEDURE ORDERABLES Final Result from Last 3 Months or Most Recently Relevant to Health Maintenance Insurance [facility] Advance Directives For more information, please contact: [phone] * Full Code (Latest Code Status on File) Date Activated Date Inactivated Comments 12/24/2022 1:15 PM 12/24/2022 3:20 PM Question Answer Comments Full Code: Discussed Care Teams Leg Assembler Relationship Specialty Start Date End Date Elsewhere, Pcp PCP - General Family Medicine 08/12/18
--- OUTSIDE RECORDS SUMMARY | 2024-11-20 02:03 | XMS_ITS | Encounter Summary ---
Author Organization [facility] er Address [address] [place] [address] Care Team Providers Care Veterinarian Poultry Name Role Phone Marilyn Grider APRN, APPEALS ASSISTANT Primary Care Provi alexa Encounter Details Date Type Department Care Team ([facility] st Contact Info) Description 02/20/2024 Telephone [facility], [facility] 52 Sleep Medicine [address] [address] Alma Rosa Covarrubias MD [address] [address] Social History Tobacco Use Types Packs/Day Years [...] on filedocumented in this encounter Care Teams Veterinarian Poultry Relationship Specialty Start Date End Date Marilyn Grider, PROGRAM EVALUATOR, APPEALS ASSISTANT [address] [place] [address] PCP - General Family Medicine 04/05/24 documented as of this encounter
--- OUTSIDE RECORDS SUMMARY | 2024-11-20 02:03 | XMS_ITS | Encounter Summary ---
Author Organization [facility] er Address [address] [place] [address] Care Team Providers Care Electronic Engineering Draftsperson Name Role Phone Marilyn Grider APRN, MEDIA LAW FACULTY MEMBER Primary Care Provi alexa Reason for Visit * Reason Comments Med Refill Encounter Details Date Type Department Care Team (Late st Contact Info) Description 01/12/2020 Refill [facility] [address] [place] [address] Matt [place] MD Chronic obstructive pulmonary disease, unspecified COPD type (HCC) Social History Tobacco Use Types Packs/Day Years Used Date Smoking Tobacco: Every Day Cigarettes Smokeless Tobacco: Current Snuff Alcohol Use Standard Drinks/Week Comments No 0 (1 standard drink = 0.6 oz pur e alcohol) AUDIT-C Answer Date Recorded Frequency of Alcohol Consumption Never 04/21/2018 Average Number of Drinks Not on file 018 Frequency of Binge Drinking Not on file 03/25 PHQ-2 Answer Date Recorded PHQ-2 Score 0 09/20/2018 Sex and Gender Information Value Date Recorded Sex Assigned at Not on file Legal Sex Male 7:38 PM CDT Gender Identity Not on file Sexual Orientation Not on file documented as of this encounter Miscellaneous Notes * Telephone Encounter - Heather Newman LPN - 01/16/2020 8:20 AM CDT Requested Prescriptions Pending Prescriptions Disp Refills ??? albuterol HFA (PROVENTIL HFA;VENTOLIN HFA) 108 (90 Base) MCG/ACT inhaler [Pharmacy Med Name: ALBUTEROL SULFATE HFA 108 AERS] 36 g 10 Sig: INHALE TWO PUFFS BY MOUTH EVERY 4 TO 6 HOURS NEEDED FOR SHORTNESS OF BREATH OR WEEZING OR ASTHMA albuterol HFA (PROVENTIL HFA;VENTOLIN HFA) 108 (90 Base) MCG/ACT inhaler [[id number]] ?? Order Details Dose, Route, Frequency: As Directed Dispense Quantity: 36 g Refills: 5 Fills remaining: -- ?? Sig: INHALE TWO PUFFS BY MOUTH EVERY 4 TO 6 HOURS NEEDED FOR SHORTNESS OF BREATH OR WEEZING OR ASTHMA ?? Written Date: 10/24/19 Expiration Date: 10/23/20 Start Date: 10/24/19 End Date: -- ?? Ordering Provider: Matt [place] MD E-Prescribing Status: Receipt confirmed by pharmacy (10/24/2019 ??8:55 AM CDT) Refills available at pharmacy. Pharmacy notified. documented in this encounter Plan of Treatment Not on file documented as of this encounter Visit Diagnoses Diagnosis Chronic obstructive pulmonary disease, unspecified COPD type (HCC) documented in this encounter Additional Health Concerns Infection Onset Date Last Indicated Resolved Time COVID-19 Rule Out 07/03/2021 07/03/2021 07/03/2021 2:08 PM CARDIOLOGY TECH COVID-19 Confirmed 07/03/2021 07/03/2021 2 8:17 PM CDT documented as of this encounter Care Teams Electronic Engineering Draftsperson Relationship Specialty Start Date End Date Marilyn Grider, EQUITY MANAGER, MEDIA LAW FACULTY MEMBER [address] [place] [address] PCP - General Family Medicine 04/05/24 documented as of this encounter
== END 2024-11-19 12:02 | disposition home or self-care (01) ==
PROVIDERS: PCP Nurse Practitioner Family; Visit Provider Nurse Practitioner Family
DX: I10 Essential (primary) hypertension (principal); E78.5 Hyperlipidemia, unspecified; F41.9 Anxiety disorder, unspecified; J44.1 Chronic obstructive pulmonary disease with (acute) exacerbation; Z12.5 Encounter for screening for malignant neoplasm of prostate
CPT/HCPCS: 80053; 83735; 84484; 85025; G0103

== ENCOUNTER 2024-11-29 13:51 | Outpatient (CLI) | payer MEDICARE, BC, SELFPAY ==
[2024-11-29] MEDS: PERFLUTREN LIPID MICROSPHERES 2 ML VIAL IVP (14:21)
--- NOTE | 2024-11-29 14:31 | PC.NURSE ---
20G IV placed in right hand. Definity given per cath lab radiology technician instruction. IV then removed intact.
== END 2024-11-29 13:52 | disposition home or self-care (01) ==
LOC: RAD 13:53
PROVIDERS: PCP Nurse Practitioner Family; Visit Provider Nurse Practitioner Family
DX: R78.81 Bacteremia (principal)
CPT/HCPCS: 93306; Q9957